=== PATIENT | female | born 1955 | race Caucasian/White ===

== ENCOUNTER 2020-07-29 10:06 | Outpatient (REF) | payer MEDICARE, MEDICAID, SELFPAY ==
--- NOTE | 2020-07-29 10:16 | XR_ITS ---
EXAMINATION: XR LUMBOSACRAL SPINE CLINICAL INFORMATION: Sacroiliitis COMPARISON: None TECHNIQUE: Three views of the lumbosacral spine. FINDINGS: There is no fracture or subluxation. Mild scoliotic curvature. There appears to be fusion at the L2-L3 vertebral bodies. Disc space narrowing of L1-L2 and L3-L4. Diffuse facet arthropathy. The sacroiliac joints are symmetric. There is no abnormal sclerosis. No fusion seen at the sacroiliac joints. The sacrum appears intact. The bowel gas pattern is unremarkable. XR/XR lumbar spine 2-3V IMPRESSION: Moderate degenerative changes of the lumbar spine. Symmetric appearance of the sacroiliac joints without fusion or abnormal sclerosis.
== END 2020-07-29 10:07 | disposition home or self-care (01) ==
LOC: HO.XRAY 10:06
PROVIDERS: PCP Internal Medicine; Visit Provider Student in an Organized Health Care Education/Training Program
DX: M46.1 Sacroiliitis, not elsewhere classified (principal)
CPT/HCPCS: 72100

== ENCOUNTER 2020-09-25 09:13 | Outpatient (REF) | payer MEDICARE, MEDICAID, SELFPAY ==
--- NOTE | 2020-09-25 09:19 | MM_ITS ---
EXAMINATION: MM SCREENING DIGITAL BREAST TOMOSYNTHESIS, BILATERAL CLINICAL INFORMATION: Screening. Asymptomatic. The lifetime risk of breast cancer based on the Tyrer-Cuzick Model is 4%. COMPARISON: Mammography: 09/20/2019 (new baseline) TECHNIQUE: Digital breast tomosynthesis is performed in both the craniocaudal and mediolateral oblique views along with computer-aided detection (CAD). Synthesized 2D images are generated from the tomosynthesis. FINDINGS: There are scattered areas of fibroglandular density (ACR BI-RADS breast composition Category b). The left breast is unremarkable. There is no interval mass or architectural abnormality. Neither breast shows abnormal calcifications. The bilateral axilla and skin contours are unremarkable. The right MLO view has asymmetric density near posterior nipple line 7 cm from nipple likely incompletely compressed glandular tissue or summation artifact. Patient will be recalled for additional imaging. MM/MM tomosynthesis screening BI IMPRESSION: 1. Right: Asymmetric density mid breast on MLO view, possibly summation artifact or incompletely compressed glandular tissue. 2. Left: No mammographic evidence of malignancy. ASSESSMENT: BI-RADS 0: Incomplete - Need Additional Imaging Evaluation RECOMMENDATION: 1. Additional views of the right breast (3-D spot MLO, 3-D ML). 2. Targeted ultrasound if warranted after review of the additional views. 3. Radiology department staff will contact the patient for additional imaging. This patient's information was entered into a reminder system with a target due date for their next mammogram.
== END 2020-09-25 09:14 | disposition home or self-care (01) ==
LOC: HO.MAMMO 09:13
PROVIDERS: PCP Internal Medicine; Visit Provider Internal Medicine
DX: Z12.31 Encounter for screening mammogram for malignant neoplasm of breast (principal)
CPT/HCPCS: 77063; 77067

== ENCOUNTER 2020-10-03 07:44 | Outpatient (REF) | payer MEDICARE, MEDICAID, SELFPAY ==
--- NOTE | 2020-10-03 07:47 | MM_ITS ---
EXAMINATION: MM DIAGNOSTIC DIGITAL BREAST TOMOSYNTHESIS, RIGHT CLINICAL INFORMATION: Recall from screening for asymmetric density right MLO view, likely incompletely compressed glandular tissue or summation artifact. COMPARISON: Mammography: 09/25/2020, 09/20/2019 TECHNIQUE: Digital breast tomosynthesis is performed. 2D images are generated from the tomosynthesis. The following views are obtained: ML, spot MLO x2. FINDINGS: There are scattered areas of fibroglandular density (ACR BI-RADS breast composition Category b). The additional views show no mass or architectural abnormality or developing density from prior studies. There are no significant changes from prior exams. Results are discussed with the patient at time of visit. MM/MM tomosynthesis added views R IMPRESSION: Additional views show no significant changes from prior exams. ASSESSMENT: BI-RADS 1: Negative RECOMMENDATION: Routine annual mammography screening. This patient's information was entered into a reminder system with a target due date for their next mammogram.
== END 2020-10-03 07:45 | disposition home or self-care (01) ==
LOC: HO.MAMMO 07:44
PROVIDERS: Visit Provider Internal Medicine
DX: N64.89 Other specified disorders of breast (principal)
CPT/HCPCS: 77061; 77065

== ENCOUNTER 2020-11-07 07:49 | Outpatient (REF) | payer MEDICARE, MEDICAID, SELFPAY ==
[2020-11-07 09:19] LABS: MANUAL DIFF FLAG NO
[2020-11-07 09:23] LABS: Basophils Percent Auto 0.7 % (0-2); Eosinophils Absolute Auto 0.1 X10*3/uL (0.0-0.4); Eosinophils Percent Auto 2.9 % (0-4); Hematocrit 37.3 % (37-47); Hemoglobin 12.3 g/dl (12.0-16.0); Imm Gran Abs Auto 0.01 X10*3/uL (0.00-0.03); Imm Gran Pct Auto 0.2 % (0.0-0.4); Lymphocytes Absolute Auto 1.5 X10*3/uL (1.2-4.9); Lymphocytes Percent Auto 35.5 % (20-40); Mean Corpuscular Hemoglobin 31.1 pg (27.0-33.0); Mean Corpuscular Volume 94.2 fL (80-98); Mean Platelet Volume 10.5 fL (9.4-12.3); Monocytes Absolute Auto 0.5 X10*3/uL (0.1-1.2); Monocytes Percent Auto 11.1 % (2-11); Neutrophils Absolute Auto 2.1 X10*3/uL (2.0-8.3); Neutrophils Percent Auto 49.6 % (45-73); Platelet Count 195 X10*3/uL (160-400); Red Blood Count 3.96 X10*6/uL (4.20-5.50); Red Cell Distribution Width 12.2 % (11.0-16.0); White Blood Count 4.1 X10*3/uL (4.8-10.8)
[2020-11-07 09:56] LABS: Alanine Aminotransferase 13 U/L (0-31); Alkaline Phosphatase 61 U/L (39-117); Anion Gap 12 (12-20); Aspartate Amino Transferase 13 U/L (5-31); Bilirubin Total 0.5 mg/dL (0.0-1.0); Blood Urea Nitrogen 20 mg/dL (9-16); Calcium 8.9 mg/dL (8.4-10.2); Carbon Dioxide 27 mmol/L (22-29); Chloride 105 mmol/L (96-108); Cholesterol 253 mg/dL; Estimated Glomerular Filt Rate 55; Glucose Random 91 mg/dL (60-115); HDL Cholesterol 79 mg/dL; LDL Cholesterol Calculated 161 mg/dl; Potassium 4.3 mmol/L (3.3-5.1); Sodium 140 mmol/L (135-145); Total Protein 6.3 g/dL (6.5-8.0); Triglycerides 68 mg/dL
[2020-11-07 10:12] LABS: Free T4 (Free Thyroxine) 1.13 ng/dL (0.71-1.85); Thyroid Stimulating Hormone 1.19 uIU/mL (0.32-4.0); Vitamin D 25-OH Total 22.1 ng/mL (>30)
[2020-11-07 10:16] LABS: Estimated Average Glucose 97 mg/dL; Hemoglobin A1C 101.1059 umol/L
[2020-11-07 10:50] LABS: Folate 7.4 ng/mL (> or = 4.0); Vitamin B12 534 pg/mL (200-900)
== END 2020-11-07 07:50 | disposition home or self-care (01) ==
LOC: HO.LAB 07:49
PROVIDERS: PCP Internal Medicine; Visit Provider Internal Medicine
DX: E78.00 Pure hypercholesterolemia, unspecified (principal); R73.02 Impaired glucose tolerance (oral)
CPT/HCPCS: 36415; 80053; 80061; 82306; 82607; 82746; 83036; 84439; 84443; 85025

== ENCOUNTER 2021-02-04 11:22 | Outpatient (REF) | payer MEDICARE, MEDICAID, SELFPAY ==
[2021-02-04 11:58] LABS: Glucose Urine UA NEG (NEG); Leukocyte Esterase Urine 1+ (NEG); Nitrite Urine NEG (NEG); PH 5.5 (5.0-8.0); Specific Gravity - Urine <= 1.005 (1.005-1.025); UACC Culture Trigger YES; Urine Blood TRACE (NEG); Urine Ketones NEG (NEG); Urine Protein NEG (NEG-TRACE)
[2021-02-04 11:59] LABS: Appearance Urine HAZY; Color Urine STRAW
[2021-02-04 12:12] LABS: RBC Urine 0-2 /HPF (0); Squamous Epithelial Cell Urine 1+ /LPF
[2021-02-04 12:13] LABS: Bacteria Urine TRACE /LPF
[2021-02-04 12:20] LABS: Alanine Aminotransferase 18 U/L (0-31); Albumin Level 4.1 g/dL (3.5-5.0); Alkaline Phosphatase 68 U/L (39-117); Anion Gap 12 (12-20); Aspartate Amino Transferase 19 U/L (5-31); Bilirubin Total 0.4 mg/dL (0.0-1.0); Blood Urea Nitrogen 25 mg/dL (9-16); Calcium 9.4 mg/dL (8.4-10.2); Carbon Dioxide 25 mmol/L (22-29); Chloride 104 mmol/L (96-108); Cholesterol 234 mg/dL; Estimated Glomerular Filt Rate 57; Glucose Random 93 mg/dL (60-115); HDL Cholesterol 102 mg/dL; LDL Cholesterol Calculated 119 mg/dl; Potassium 4.3 mmol/L (3.3-5.1); Sodium 137 mmol/L (135-145); Total Protein 6.5 g/dL (6.5-8.0); Triglycerides 68 mg/dL
== END 2021-02-04 11:23 | disposition home or self-care (01) ==
LOC: HO.LAB 11:22
PROVIDERS: PCP Internal Medicine; Visit Provider Internal Medicine
DX: E78.00 Pure hypercholesterolemia, unspecified (principal); R30.0 Dysuria
CPT/HCPCS: 36415; 80053; 80061; 81001; 81003; 87086; 87088; 87186

== ENCOUNTER 2021-04-29 11:13 | Outpatient (REF) | payer MEDICARE, MEDICAID, SELFPAY ==
[2021-04-29 15:15] LABS: Glucose Urine UA NEG (NEG); Leukocyte Esterase Urine 1+ (NEG); Nitrite Urine NEG (NEG); Specific Gravity - Urine <= 1.005 (1.005-1.025); UACC Culture Trigger YES; Urine Blood NEG (NEG); Urine Ketones NEG (NEG); Urine Protein NEG (NEG-TRACE)
[2021-04-29 15:17] LABS: Appearance Urine CLEAR; Color Urine STRAW
[2021-04-29 15:34] LABS: Bacteria Urine 3+ /LPF; RBC Urine 0 /HPF (0)
== END 2021-04-29 11:14 | disposition home or self-care (01) ==
LOC: HO.LAB 11:13
PROVIDERS: PCP Internal Medicine; Visit Provider Internal Medicine
DX: R30.0 Dysuria (principal)
CPT/HCPCS: 81001; 81003; 87086; 87088; 87186

== ENCOUNTER 2021-08-18 11:40 | Outpatient (REF) | payer MEDICARE, MEDICAID, SELFPAY ==
[2021-08-18 12:01] LABS: MANUAL DIFF FLAG NO
[2021-08-18 12:24] LABS: Basophils Percent Auto 0.6 % (0-2); Eosinophils Absolute Auto 0.1 X10*3/uL (0.0-0.4); Eosinophils Percent Auto 1.6 % (0-4); Hematocrit 33.7 % (37.0-47.0); Hemoglobin 10.5 g/dl (12.0-16.0); Imm Gran Abs Auto 0.03 X10*3/uL (0.00-0.03); Imm Gran Pct Auto 0.4 % (0.0-0.4); Lymphocytes Absolute Auto 1.6 X10*3/uL (1.2-4.9); Lymphocytes Percent Auto 23.4 % (20-40); Mean Corpuscular HGB Conc 31.2 g/dl (31.0-35.0); Mean Corpuscular Hemoglobin 30.2 pg (27.0-33.0); Mean Corpuscular Volume 96.8 fL (80.0-98.0); Mean Platelet Volume 9.2 fL (9.4-12.3); Monocytes Absolute Auto 0.6 X10*3/uL (0.1-1.2); Monocytes Percent Auto 7.9 % (2-11); Neutrophils Absolute Auto 4.6 x10*3/uL (2.0-8.3); Neutrophils Percent Auto 66.1 % (45-73); Platelet Count 410 X10*3/uL (160-400); Red Blood Count 3.48 X10*6/uL (4.20-5.50); Red Cell Distribution Width 13.2 % (11.0-16.0)
[2021-08-18 12:49] LABS: C Reactive Protein 0.79 mg/dL (< or = 0.50)
[2021-08-18 13:15] LABS: Erythrocyte Sedimentation Rate 32 MM/HR (0-20)
[2021-08-18 13:54] LABS: Appearance Urine CLEAR; Color Urine YELLOW; Glucose Urine UA NEG (NEG); Leukocyte Esterase Urine NEG (NEG); Nitrite Urine NEG (NEG); PH 5.5 (5.0-8.0); Specific Gravity - Urine >= 1.030 (1.005-1.025); Urine Blood NEG (NEG); Urine Ketones 5 MG/DL (NEG); Urine Protein NEG (NEG-TRACE)
== END 2021-08-18 11:41 | disposition home or self-care (01) ==
LOC: HO.LAB 11:40
PROVIDERS: Absent Provider Physician Assistant; PCP Internal Medicine; Visit Provider Neurological Surgery
DX: R30.0 Dysuria (principal); D64.9 Anemia, unspecified; R53.83 Other fatigue; L08.9 Local infection of the skin and subcutaneous tissue, unspecified
CPT/HCPCS: 36415; 81003; 85025; 85652; 86140

== ENCOUNTER 2021-10-14 10:55 | Outpatient (REF) | payer MEDICARE, MEDICAID, SELFPAY ==
--- NOTE | ~2021-10-14 | MM_ITS ---
EXAMINATION: MM SCREENING DIGITAL BREAST TOMOSYNTHESIS, BILATERAL CLINICAL INFORMATION: Screening. Asymptomatic. The lifetime risk of breast cancer based on the Tyrer-Cuzick Model is 4%. COMPARISON: Mammography: 10/03/2020, 09/25/2020, 09/20/2019 (new baseline) TECHNIQUE: Digital breast tomosynthesis is performed in both the craniocaudal and mediolateral oblique views along with computer-aided detection (CAD). Synthesized 2D images are generated from the tomosynthesis. FINDINGS: There are scattered areas of fibroglandular density (ACR BI-RADS breast composition Category b). There are no significant masses, abnormal calcifications, or other abnormalities. Parenchymal pattern is similar to prior studies. There is no developing density or architectural abnormality. The axilla and skin contours are unremarkable. No significant changes. MM/MM tomosynthesis screening BI IMPRESSION: No mammographic evidence of malignancy. ASSESSMENT: BI-RADS 1: Negative RECOMMENDATION: Routine annual mammography screening. This patient's information was entered into a reminder system with a target due date for their next mammogram.
--- NOTE | ~2021-10-14 | MM_ITS ---
EXAMINATION: BONE DENSITOMETRY CLINICAL INDICATION: Other specified disorders of bone density and structure, unspecified site. COMPARISON: None (current study represents initial baseline exam). TECHNIQUE: Using a Stitch DXA System (software version: 13.1) manufactured by [employer], dual-energy x-ray absorptiometry was performed of the lumbar spine and left hip. The images are of good technical quality. Summary results are attached. FINDINGS: AP SPINE L1-L4: BMD 1.370 g/cm2, Z-score 3.1, T-score 1.6, normal. LEFT FEMUR, NECK: BMD 0.768 g/cm2, Z-score -0.5, T-score -1.9, osteopenia. LEFT FEMUR, TOTAL: BMD 0.784 g/cm2, Z-score -0.6, T-score -1.8, osteopenia. IDENTIFIED RISK FACTORS: Early menopause, secondary osteoporosis, height loss. HISTORY OF FRACTURE: None listed. MEDICATIONS: Vitamin D. MM/XR DEXA axial skeleton IMPRESSION: 1. DIAGNOSIS: Osteopenia based on the lowest T-score value of -1.9 in the femoral neck applying World Health Organization criteria. 2. 10-YEAR FRACTURE RISK PREDICTION, FRAX: Major osteoporotic fracture (clinical spine, forearm, hip or shoulder) 10.3%. Hip fracture 1.5%. 3. Treatment Recommendations: NOF guidelines recommend consideration for treatment in postmenopausal women and men age 50 and older presenting with the following: -A hip or vertebral (clinical or morphometric) fracture. -T-score less than or equal to -2.5 at the femoral neck or spine after appropriate evaluation to exclude secondary causes. -Low bone mass at the hip or spine and a 10-year fracture probability by FRAX of greater than or equal to 3% for hip fracture or greater than or equal to 20% for major osteoporotic fracture based on the [place] adapted WHO algorithm. 4. Other Recommendations: All treatment decisions require clinical judgment and consideration of individual patient factors, including patient preferences, comorbidities, previous drug use, risk factors not captured in the FRAX model (e.g. frailty, falls, vitamin D deficiency, increased bone turnover, interval significant decline in bone density) and possible under or overestimation of fracture risk by FRAX. Additional medical evaluation for secondary cause of low bone mineral density may be appropriate. FUTURE SCAN RECOMMENDATION: People with diagnosed cases of osteoporosis or at high risk for fracture should have regular bone mineral density tests. For patients eligible for Medicare, routine testing is allowed once every 2 years. The testing frequency can be increased to one year for patients who have rapidly progressing disease, those who are receiving or discontinuing medical therapy to restore bone mass, or have additional risk factors.
== END 2021-10-14 10:56 | disposition home or self-care (01) ==
LOC: HO.MAMMO 10:55
PROVIDERS: PCP Internal Medicine; Visit Provider Internal Medicine
DX: Z12.31 Encounter for screening mammogram for malignant neoplasm of breast (principal); Z13.820 Encounter for screening for osteoporosis; M85.80 Other specified disorders of bone density and structure, unspecified site; Z78.0 Asymptomatic menopausal state
CPT/HCPCS: 77063; 77067; 77080

== ENCOUNTER 2022-06-02 07:03 | Outpatient (REF) | payer MEDICARE, MEDICAID, SELFPAY ==
[2022-06-02 11:09] LABS: MANUAL DIFF FLAG NO
[2022-06-02 11:25] LABS: Basophils Percent Auto 0.7 % (0-2); Eosinophils Absolute Auto 0.1 X10*3/uL (0.0-0.4); Hematocrit 38.3 % (37.0-47.0); Hemoglobin 12.3 g/dl (12.0-16.0); Imm Gran Abs Auto 0.01 X10*3/uL (0.00-0.03); Imm Gran Pct Auto 0.2 % (0.0-0.4); Immature Retic Fraction 3.9 % (3.0-15.9); Lymphocytes Absolute Auto 1.9 X10*3/uL (1.2-4.9); Lymphocytes Percent Auto 42.6 % (20-40); Mean Corpuscular HGB Conc 32.1 g/dl (31.0-35.0); Mean Corpuscular Hemoglobin 29.7 pg (27.0-33.0); Mean Corpuscular Volume 92.5 fL (80.0-98.0); Mean Platelet Volume 10.8 fL (9.4-12.3); Monocytes Absolute Auto 0.4 X10*3/uL (0.1-1.2); Monocytes Percent Auto 9.3 % (2-11); Neutrophils Absolute Auto 1.9 x10*3/uL (2.0-8.3); Neutrophils Percent Auto 44.2 % (45-73); Platelet Count 186 X10*3/uL (160-400); Red Blood Count 4.14 X10*6/uL (4.20-5.50); Red Cell Distribution Width 13.1 % (11.0-16.0); Retic HGB Equivalent 34.3 pg (30.0-35.0); Reticulocyte Percent 1.4 % (0.5-1.8); Reticulocytes Absolute 0.056 X10*6/uL (0.026-0.095); White Blood Count 4.4 X10*3/uL (4.8-10.8)
[2022-06-02 11:31] LABS: Estimated Average Glucose 103 mg/dL; Hemoglobin A1c % 5.2 %
[2022-06-02 11:52] LABS: Alanine Aminotransferase 14 U/L (0-31); Albumin Level 4.2 g/dL (3.5-5.0); Alkaline Phosphatase 79 U/L (39-117); Anion Gap 14 (12-20); Aspartate Amino Transferase 19 U/L (5-31); Bilirubin Total 0.5 mg/dL (0.0-1.0); Blood Urea Nitrogen 30 mg/dL (9-16); Carbon Dioxide 25 mmol/L (22-29); Chloride 106 mmol/L (96-108); Cholesterol 308 mg/dL; Estimated Glomerular Filt Rate 47; Glucose Random 98 mg/dL (60-115); HDL Cholesterol 75 mg/dL; Iron 104 mcg/dL (30-160); LDL Cholesterol Calculated 216 mg/dl; Percent Iron Saturation 35 % (15-50); Potassium 4.1 mmol/L (3.3-5.1); Sodium 141 mmol/L (135-145); Total Iron Binding Capacity 295 mcg/dL (228-428); Total Protein 6.8 g/dL (6.5-8.0); Triglycerides 87 mg/dL; Unsaturated Iron Binding 191 ug/dL
[2022-06-02 11:59] LABS: Ferritin 209 ng/mL (10-250); Free T4 (Free Thyroxine) 0.95 ng/dL (0.71-1.85); Thyroid Stimulating Hormone 1.67 uIU/mL (0.32-4.0); Vitamin D 25-OH Total 28.4 ng/mL (>30)
[2022-06-02 12:06] LABS: Folate 7.6 ng/mL (> or = 4.0); Vitamin B12 534 pg/mL (200-900)
[2022-06-04 21:41] LABS: Lyme Abs Screen <0.90 index
[2022-06-05 14:47] LABS: A. Phagocytphilium DNA,RT-PCR NOT DETECTED (NOT DETECTED); Babesia Microti DNA, RT-PCR NOT DETECTED (NOT DETECTED); Borrelia Miyamotoi,DNA RT-PCR NOT DETECTED (NOT DETECTED); E.Chaffeensis DNA RT-PCR NOT DETECTED (NOT DETECTED); Lyme(Borrelia ssp)DNA RT-PCR NOT DETECTED (NOT DETECTED)
== END 2022-06-02 07:04 | disposition home or self-care (01) ==
LOC: HO.HMGCLDS 07:03
PROVIDERS: Absent Provider Physician Assistant; PCP Internal Medicine; Visit Provider Internal Medicine
DX: E78.00 Pure hypercholesterolemia, unspecified (principal); R73.02 Impaired glucose tolerance (oral); R21 Rash and other nonspecific skin eruption; M81.0 Age-related osteoporosis without current pathological fracture; D64.9 Anemia, unspecified
CPT/HCPCS: 36415; 80053; 80061; 82306; 82607; 82728; 82746; 83036; 83540; 84439; 84443; 85025; 85045; 86617; 86618; 87798; 87801

== ENCOUNTER 2022-06-24 12:03 | Emergency (ER) | payer MEDICARE, MEDICAID, SELFPAY ==
--- NOTE | ~2022-06-24 | US_ITS ---
EXAMINATION: US VENOUS ULTRASOUND WITH DOPPLER LOWER EXTREMITY, LEFT CLINICAL INFORMATION: Calf cramping, pain COMPARISON: None TECHNIQUE: Ultrasound of the deep veins is performed from the hip to the calf with compression sonography and color and pulse Doppler assessment. Spectral analysis with color-flow imaging is performed. FINDINGS: There is normal venous compression and respiratory variation and augmented flow. The visualized common femoral vein, superficial femoral vein, profunda femoral vein, popliteal vein, and the trifurcation region shows no evidence of deep venous thrombosis. There is no significant popliteal fossa cyst. If the patient's symptoms persist, followup ultrasound in 5 days 7 days might be of value to exclude proximal propagation from a non-visualized calf vein. US/US venous duplex LE LT IMPRESSION: No DVT demonstrated in the left lower extremity.
--- NOTE | ~2022-06-24 | XR_ITS ---
EXAMINATION: XR CHEST CLINICAL INFORMATION: Dyspnea COMPARISON: Previous chest x-ray most recent August 2016 TECHNIQUE: Frontal view of the chest was obtained. FINDINGS: No significant abnormality is noted involving the heart, lungs, mediastinum, bony thorax or soft tissues. XR/XR chest 1V IMPRESSION: Unremarkable examination.
[2022-06-24 12:06] VITALS: PULSE 98; RESP 18; TEMP 37.2; O2SAT 99; BMI 22.4
--- NOTE | 2022-06-24 12:10 | ECG_ITS ---
Test Reason : DYSPNEA Blood Pressure : / mmHG Vent. Rate : 076 BPM Atrial Rate : 076 BPM P-R Int : 126 ms QRS Dur : 078 ms QT Int : 404 ms P-R-T Axes : 073 045 063 degrees QTc Int : 454 ms Normal sinus rhythm Intra-ventricular conduction delay Otherwise normal ECG When compared with ECG of 27-SEP-2019 12:41, No significant changes seen Referred By: Generic ED Physician Electronically Signed By:GLENN MATHEWS MD
[2022-06-24 12:30] LABS: Basophils Percent Auto 0.4 % (0-2); Eosinophils Absolute Auto 0.1 X10*3/uL (0.0-0.4); Eosinophils Percent Auto 2.2 % (0-4); Hematocrit 35.9 % (37.0-47.0); Lymphocytes Absolute Auto 1.4 X10*3/uL (1.2-4.9); Lymphocytes Percent Auto 30.3 % (20-40); MANUAL DIFF FLAG NO; Mean Corpuscular HGB Conc 33.4 g/dl (31.0-35.0); Mean Corpuscular Hemoglobin 30.2 pg (27.0-33.0); Mean Corpuscular Volume 90.4 fL (80.0-98.0); Mean Platelet Volume 9.6 fL (9.4-12.3); Monocytes Absolute Auto 0.3 X10*3/uL (0.1-1.2); Monocytes Percent Auto 6.5 % (2-11); Neutrophils Absolute Auto 2.8 x10*3/uL (2.0-8.3); Neutrophils Percent Auto 60.6 % (45-73); Platelet Count 203 X10*3/uL (160-400); Red Blood Count 3.97 X10*6/uL (4.20-5.50); Red Cell Distribution Width 13.2 % (11.0-16.0); White Blood Count 4.6 X10*3/uL (4.8-10.8)
[2022-06-24 12:47] LABS: Alanine Aminotransferase 16 U/L (0-31); Albumin Level 4.2 g/dL (3.5-5.0); Alkaline Phosphatase 76 U/L (39-117); Anion Gap 16 (12-20); Aspartate Amino Transferase 19 U/L (5-31); Bilirubin Total 0.4 mg/dL (0.0-1.0); Blood Urea Nitrogen 20 mg/dL (9-16); Calcium 8.9 mg/dL (8.4-10.2); Carbon Dioxide 22 mmol/L (22-29); Chloride 105 mmol/L (96-108); Creatinine Clr Calc Pharmacy 55.3; Estimated Glomerular Filt Rate 59; Glucose Random 116 mg/dL (60-115); Sodium 139 mmol/L (135-145); Total Protein 6.7 g/dL (6.5-8.0)
[2022-06-24 12:50] LABS: COVID-19 Test Negative (Negative); IDNOW Serial# 55D5AD1C
[2022-06-24 15:05] VITALS: BP 149/60; PULSE 65; RESP 16; TEMP 36.6; O2SAT 98; BMI 22.4
--- NOTE | 2022-06-24 16:25 | ED.GENADULT ---
HPI - General Adult General Chief complaint: Dyspnea Stated complaint: SOB Time Seen by Provider: 06/24/22 16:24 Source: patient Mode of arrival: ambulatory Limitations: no limitations History of Present Illness HPI narrative: 67 year old female history of anxiety, depression, DDD, impaired glucose tolerance presents to the ED with complaints of shortness of breath at rest and dyspnea on exertion X 3 weeks. Patient reports this is not normal for her at all, she is usually active wo difficulties. Reports she recently got a puppy 3 weeks ago and she feels like she cant even walk the dog due to DOSHI. Vague complaints of few days of left calf cramping. Denies hormone replacement therapy, long travel, hx of pe/dvt. Not on blood thinners. Denies [place] pain, nausea, vomiting, abd pain, headache, dizziness, weakness, fevers, chills. Related Data Home Medications Medication Instructions Recorded Confirmed sertraline 100 mg tablet 200 mg PO DAILY 08/19/21 09/22/21 Previous Rx's Medication Instructions Recorded triamcinolone acetonide 0.5 % 1 appl topical BID #60 grams 11/16/20 topical cream fluticasone propionate 50 2 spray intranasal DAILY #48 grams 12/16/20 mcg/actuation nasal spray,suspension metronidazole 1 % topical gel 1 appl topical BEDTIME #60 grams 12/22/20 (Metrogel) lamotrigine 150 mg tablet 150 mg PO DAILY #90 tabs 01/05/21 clonazepam 1 mg tablet 1 mg PO QID PRN anxiety 30 days 01/12/21 #120 tabs cane #1 ea 08/19/21 sennosides 8.6 mg-docusate sodium 2 tab-cap PO BEDTIME 30 days #60 09/22/21 50 mg tablet (Senna-S) tabs fexofenadine 180 mg tablet 180 mg PO DAILY 90 days #90 tabs 11/10/21 (Corrine Allergy) bupropion HCl 200 mg tablet,12 hr 200 mg PO DAILY #90 tabs 01/04/22 sustained-release doxycycline hyclate 100 mg capsule 100 mg PO BID 10 days #20 caps 06/01/22 hydrocortisone 1 % lotion 1 appl topical TID PRN skin 06/01/22 (Anti-Itch (hydrocortisone)) irritation #120 mL prednisone 20 mg tablet 20 mg PO DAILY 5 days #5 tabs 06/01/22 Allergies Allergy/AdvReac Type Severity Reaction Status Date / Time prednisone [PREDNISONE] Allergy Unknown HIVES Verified 06/01/22 15:34 trazodone AdvReac Intermediate nightmares Verified 06/01/22 15:34 Review of Systems Review of Systems: Constitutional : No Weight loss, No Fever, No Chills, No Fatigue, No Malaise ENT/Mouth : No sore throat, No Rhinorrhea Eyes: No Eye Pain, No Swelling, No Redness Cardiovascular : No Chest Pain, + SOB, + Dyspnea on Exertion, No Orthopnea, No Edema, No Palpitations Respiratory : No Cough, No Sputum, No Wheezing Gastrointestinal : No Nausea, No Vomiting, No Diarrhea, No Constipation, No abdominal Pain, No Hematochezia, No Melena Genitourinary : No Dysuria, No Urinary Frequency, No Hematuria, Musculoskeletal : No joint pain, No Myalgias, No Joint Swelling Skin : No Skin Lesions, No rash Neuro : No Weakness, No Numbness, No Dizziness, No Headache Psych : No Anxiety/Panic, No Depression All other systems reviewed and are negative Yes all other systems are reviewed and are negative [facility] Past Medical History Attestation statement: The following information was validated with the patient. Source: old records reviewed and nursing notes reviewed Medical History DDD (degenerative disc disease), lumbar Impaired glucose tolerance Surgical History History of back surgery Family History Family History Father No problems noted. Mother Melanoma Brother Bladder cancer Sister Major depression Daughter Major depression Social History Social History Housing: House Alcohol intake: current Patient Tobacco Use Status: Former Tobacco user Tobacco use type: Cigarette Years Smoked: quit 2014 e-Cigarette/Vaping Use: Never Used Second Hand Smoke Exposure: No Advance Directives: No Advance Directives Information Provided: No Current occupational status: disabled Physical Exam ED Vital Signs: Vital Signs - 24 hr 06/24/22 12:06 06/24/22 15:05 06/24/22 16:41 Temperature 98.9 F 97.9 F Pulse Rate 98 65 70 Respiratory Rate 18 16 18 Blood Pressure 149/60 H 169/82 H Pulse Oximetry 99 98 97 Oxygen Delivery Method Room Air Room Air Room Air BMI result Body Mass Index 22.4 vss Appearance: Alert.? Oriented X3.? No acute distress.? Head: Normocephalic, atraumatic, no step-offs or deformities Eyes: Pupils equal, round and reactive to light.? ENT: Pharynx normal.?? Neck: Normal inspection.? Neck supple.? CVS: Normal heart rate and rhythm.? Pulses normal.? Respiratory: No respiratory distress.? Breath sounds normal.? Abdomen: Soft and nontender.? Skin: Skin warm and dry.? Normal skin color.? Normal skin turgor.? Extremities: No lower extremity edema.? No calf ttp. 5/5 strength to bilateral upper and lower extremities Back: No midline tenderness, no C-spine tenderness, full range of motion, no CVA tenderness bilaterally Neuro: Oriented X 3.? No motor deficit.? No sensory deficit. CN 2-12 intact Course Reevaluation(s) Reevaluation #1: CBC appears to be around patients baseline. Chemistry wo electrolyte abnormalities requiring intervention. COVID negative. CXR no acute findings. Initial EKG with large amount of aritifact hard to determine underlying rythem will reapeat at this time. Pending repeat EKG, BNP, ambulatory O2, urine, dimer, dvt study Time: 16:32 Reevaluation #2: Repeat EKG showing normal sinus rhythm no ST elevations or inversions concerning for ischemia. D-dimer negative. Pending BNP, ambulatory O2, urine, DVT study. Time: 18:12 Reevaluation #3: No DVT on US. Pending BNP, ambulatory O2 and urine. Time: 18:36 Additional Reevaluation(s): Patient refusing further evaluation and tx, states she has been waiting long enough to nursing. Patient requesting to leave at this time will leave AMA Medical Decision Making MDM Narrative Medical decision making narrative: [id number] 67 yo female presents with sob & dyspnea on exertion X 3 weeks PE - benign Plan- labs, imaging, urine, dimer. PERC- 1 for age. Medical Records Medical records reviewed: Yes I reviewed the patient's medical records. Lab Data Lab results reviewed: Yes I reviewed the patient's lab results. Result diagrams: 06/24/22 12:24 06/24/22 12:24 Labs: Lab Results 06/24/22 06/24/22 06/24/22 Range/Units 12:24 12:24 12:24 WBC 4.6 L (4.8-10.8) X10*3/uL RBC 3.97 L (4.20-5.50) X10*6/uL Hgb 12.0 (12.0-16.0) g/dl Hct 35.9 L (37.0-47.0) % MCV 90.4 (80.0-98.0) fL MCH 30.2 (27.0-33.0) pg MCHC 33.4 (31.0-35.0) g/dl RDW 13.2 (11.0-16.0) % Plt Count 203 (160-400) X10*3/uL MPV 9.6 (9.4-12.3) fL Immature Gran % (Auto) 0.0 (0.0-0.4) % Neut % (Auto) 60.6 (45-73) % Lymph % (Auto) 30.3 (20-40) % [place] % (Auto) 6.5 (2-11) % Eos % (Auto) 2.2 (0-4) % Baso % (Auto) 0.4 (0-2) % Lymph # (Auto) 1.4 (1.2-4.9) X10*3/uL [place] # (Auto) 0.3 (0.1-1.2) X10*3/uL Eos # (Auto) 0.1 (0.0-0.4) X10*3/uL Baso # (Auto) 0.0 (0.0-0.2) X10*3/uL Abs Immat Gran (auto) 0.00 (0.00-0.03) X10*3/uL Absolute Neuts (auto) 2.8 (2.0-8.3) x10*3/uL Absolute Nucleated RBC 0.000 (0.0-0.012) X10*3/uL Nucleated RBC % (auto) 0.0 (0.0-0.2) /100WBC D-Dimer High Sensitivty NG/ML Sodium 139 (135-145) mmol/L Potassium 4.0 (3.3-5.1) mmol/L Chloride 105 (96-108) mmol/L Carbon Dioxide 22 (22-29) mmol/L Anion Gap 16 (12-20) BUN 20 H (9-16) mg/dL Creatinine 0.95 (0.5-1.4) mg/dL Estim Creat Clear Calc 55.3 Estimated GFR 59 Random Glucose 116 H (60-115) mg/dL Calcium 8.9 (8.4-10.2) mg/dL Total Bilirubin 0.4 (0.0-1.0) mg/dL AST 19 (5-31) U/L ALT 16 (0-31) U/L Alkaline Phosphatase 76 (39-117) U/L Total Protein 6.7 (6.5-8.0) g/dL Albumin 4.2 (3.5-5.0) g/dL COVID-19 (JESÚS) Negative (Negative) COVID-19 Clin Com See Note 06/24/22 Range/Units 17:19 WBC (4.8-10.8) X10*3/uL RBC (4.20-5.50) X10*6/uL Hgb (12.0-16.0) g/dl Hct (37.0-47.0) % MCV (80.0-98.0) fL MCH (27.0-33.0) pg MCHC (31.0-35.0) g/dl RDW (11.0-16.0) % Plt Count (160-400) X10*3/uL MPV (9.4-12.3) fL Immature Gran % (Auto) (0.0-0.4) % Neut % (Auto) (45-73) % Lymph % (Auto) (20-40) % [place] % (Auto) (2-11) % Eos % (Auto) (0-4) % Baso % (Auto) (0-2) % Lymph # (Auto) (1.2-4.9) X10*3/uL [place] # (Auto) (0.1-1.2) X10*3/uL Eos # (Auto) (0.0-0.4) X10*3/uL Baso # (Auto) (0.0-0.2) X10*3/uL Abs Immat Gran (auto) (0.00-0.03) X10*3/uL Absolute Neuts (auto) (2.0-8.3) x10*3/uL Absolute Nucleated RBC (0.0-0.012) X10*3/uL Nucleated RBC % (auto) (0.0-0.2) /100WBC D-Dimer High Sensitivty < 150 NG/ML Sodium (135-145) mmol/L Potassium (3.3-5.1) mmol/L Chloride (96-108) mmol/L Carbon Dioxide (22-29) mmol/L Anion Gap (12-20) BUN (9-16) mg/dL Creatinine (0.5-1.4) mg/dL Estim Creat Clear Calc Estimated GFR Random Glucose (60-115) mg/dL Calcium (8.4-10.2) mg/dL Total Bilirubin (0.0-1.0) mg/dL AST (5-31) U/L ALT (0-31) U/L Alkaline Phosphatase (39-117) U/L Total Protein (6.5-8.0) g/dL Albumin (3.5-5.0) g/dL COVID-19 (JESÚS) (Negative) COVID-19 Clin Com ECG Data Attestation: I personally reviewed and interpreted this ECG as follows: Prior ECG tracings: available for review Interpretation: Vent 65 pr normal qrs normal, qt/qtc normal, no st elevations or inversions. No signs of acute ischemia. No changes from 09/27/2019 Critical Care Time Critical Care Time Critical Care Time: No Discharge Plan Discharge Clinical Impression: Shortness of breath, Left against medical advice Patient Disposition: Home, Self-Care Instructions: Shortness of Breath (ED) Additional Instructions: Take your medications as prescribed. If you were prescribed antibiotics today, it is important that you take your medication to their entirety, do not skip any doses, do not finish them early. Follow-up with your primary care provider this week. Return to the emergency department with new or worsening symptoms. In case of emergency call 911 US/US venous duplex LE LT IMPRESSION: No DVT demonstrated in the left lower extremity. XR/XR chest 1V IMPRESSION: Unremarkable examination. ? Prescriptions: No Action triamcinolone acetonide 0.5 % cream 1 appl topical BID Qty: 60 0RF fluticasone propionate 50 mcg/actuation spray,suspension 2 spray intranasal DAILY Qty: 48 11RF lamotrigine 150 mg tablet 150 mg PO DAILY Qty: 90 2RF clonazepam 1 mg tablet 1 mg PO QID PRN (Reason: anxiety) 30 Days Qty: 120 2RF fexofenadine [Corrine Allergy] 180 mg tablet 180 mg PO DAILY 90 Days Qty: 90 1RF bupropion HCl 200 mg tablet sustained-release 12 hr 200 mg PO DAILY Qty: 90 2RF metronidazole [Metrogel] 1 % gel 1 appl topical BEDTIME Qty: 60 0RF sertraline 100 mg tablet 200 mg PO DAILY sennosides-docusate sodium [Senna-S] 8.6-50 mg tablet 2 tab-cap PO BEDTIME 30 Days Qty: 60 3RF prednisone 20 mg tablet 20 mg PO DAILY 5 Days Qty: 5 0RF hydrocortisone [Anti-Itch (HC)] 1 % lotion 1 appl topical TID PRN (Reason: skin irritation) Qty: 120 0RF doxycycline hyclate 100 mg capsule 100 mg PO BID 10 Days Qty: 20 0RF (DME) cane Device See Rx Instructions .Route Qty: 1 0RF Rx Instructions: As directed Referrals: Jose Diaz MD [Primary Care Provider] - 2 days Stand Alone Forms: Against Medical Advice
--- NOTE | 2022-06-24 16:32 | ECG_ITS ---
Test Reason : SOB Blood Pressure : / mmHG Vent. Rate : 065 BPM Atrial Rate : 065 BPM P-R Int : 120 ms QRS Dur : 086 ms QT Int : 430 ms P-R-T Axes : 035 055 067 degrees QTc Int : 447 ms Normal sinus rhythm Normal ECG When compared with ECG of 24-JUN-2022 12:17, No significant changes seen Referred By: Les Roach Electronically Signed By:GLENN MATHEWS MD
[2022-06-24 16:41] VITALS: BP 169/82; PULSE 70; RESP 18; O2SAT 97
--- OUTSIDE RECORDS SUMMARY | 2022-06-24 17:06 | XMS_ITS | Continuity of Care Document ---
:1955 Author Organization [facility] Address [address] [place] [address]- Care Team Providers Name Role Phone Po Jose ROCK Primary Care Physician Encounter [facility] Date(s): 10/08/19 - 10/18/19 [place] [address]- [facility] Attending Physician: Admtr, [id number] Admitting Physician: Admtr, Ar8 Referring Physician: Admtr, Ar8 Allergies, Adverse Reactions, Alerts Substance Reaction Severity Status predniSONE Hives Active traZODone Active
--- OUTSIDE RECORDS SUMMARY | 2022-06-24 17:06 | XMS_ITS | Continuity of Care Document ---
:1955 Author Organization [facility] Address [address] [place] [address]- Care Team Providers Name Role Phone Po Jose ROCK Primary Care Physician Encounter [facility] Date(s): 03/09/21 - 03/16/21 [facility] [address] [place] [address]- Encounter Diagnosis Keratosis (Discharge Diagnosis) - 03/09/21 Attending Physician: Raymond Aguilar MD Allergies, Adverse Reactions, Alerts Substance Reaction Severity Status predniSONE Hives Active traZODone Active Problem List Diagnosis Diagnosis Type Effective Dates Health Status Clinical Serv ice Informant Keratosis Discharge 03/09/21 Diagnosis Vital Signs Most recent to oldest [Reference Range]: 1 Height 165 cm (03/09/21 11:55 AM) Oxygen Saturation [94-100 %] 100 % (03/09/21 11:55 AM) Pulse Rate [55-90 bpm] 71 bpm (03/09/21 11:55 AM) Blood Pressure [90-138/55-84 mm Hg] 162/77 mm Hg *H* (03/09/21 11:55 AM) Respiratory Rate [16-30 br/min] 18 br/min (03/09/21 11:55 AM) Temperature [96.8-100.4 DegF] 98.7 DegF (03/09/21 11:55 AM) Mode of Delivery (Oxygen) Room air (03/09/21 11:55 AM) Blood pressure sites Arm, right (03/09/21 11:55 AM) Temperature Route Temporal (03/09/21 11:55 AM)
--- OUTSIDE RECORDS SUMMARY | 2022-06-24 17:06 | XMS_ITS | Continuity of Care Document ---
:1955 Author Organization [facility] Address [address] [place] [address]- Care Team Providers Name Role Phone Jose Diaz MD Primary Care Physician Encounter [facility] Date(s): 09/14/20 - 09/21/20 [facility] [address] [place] [address]- Encounter Diagnosis Facial swelling (Discharge Diagnosis) - 09/14/20 Hypertension (Discharge Diagnosis) - 09/14/20 Attending Physician: Raymond Aguilar MD Referring Physician: Jose Diaz MD Allergies, Adverse Reactions, Alerts Substance Reaction Severity Status predniSONE Hives Active traZODone Active Problem List Diagnosis Diagnosis Type Effective Dates Health Status Clinical In formant Service Facial swelling Discharge 09/14/20 Diagnosis Hypertension Discharge 09/14/20 Diagnosis Vital Signs Most recent to oldest [Reference Range]: 1 Height 165 cm (09/14/20 10:04 AM) Oxygen Saturation [94-100 %] 96 % (09/14/20 10:04 AM) Pulse Rate [55-90 bpm] 70 bpm (09/14/20 10:04 AM) Blood Pressure [90-138/55-84 mm Hg] 173/103 mm Hg *H* (09/14/20 10:04 AM) Respiratory Rate [16-30 br/min] 20 br/min (09/14/20 10:04 AM) Temperature [96.8-100.4 DegF] 97.5 DegF (09/14/20 10:04 AM) Mode of Delivery (Oxygen) Room air (09/14/20 10:04 AM) Blood pressure sites Arm, left (09/14/20 10:04 AM)
--- OUTSIDE RECORDS SUMMARY | 2022-06-24 17:06 | XMS_ITS | Continuity of Care Document ---
:1955 Author Organization [facility] Address [address] [place] [address]- Care Team Providers Name Role Phone Po Jose ROCK Primary Care Physician Encounter [facility] Date(s): 01/21/21 - 02/20/[address] [address] Attending Physician: Dawna Ruvalcaba Admitting Physician: Admtr, Ar8 Referring Physician: Admtr, Ar8 Allergies, Adverse Reactions, Alerts Substance Reaction Severity Status predniSONE Hives Active traZODone Active
--- OUTSIDE RECORDS SUMMARY | 2022-06-24 17:06 | XMS_ITS | Continuity of Care Document ---
:1955 Author Organization [facility] Address [address] [place] [address]- Care Team Providers Name Role Phone Jose Diaz MD Primary Care Physician Encounter [facility] [place] Date(s): 11/22/20 - 11/29/20 [facility] [address] [place] [address]- Encounter Diagnosis Screen for STD (sexually transmitted disease) (Discharge Diagnosis) - 11/22/20 Attending Physician: Raymond Aguilar MD Referring Physician: Jose Diaz MD Allergies, Adverse Reactions, Alerts Substance Reaction Severity Status predniSONE Hives Active traZODone Active Problem List Diagnosis Diagnosis Type Effective Dates Health Clinical Infor mant Status Service Screen for STD Discharge 11/22/20 (sexually Diagnosis transmitted disease) Vital Signs Most recent to oldest [Reference Range]: 1 Height 165 cm (11/22/20 2:31 PM) Oxygen Saturation [94-100 %] 100 % (11/22/20 2:31 PM) Pulse Rate [55-90 bpm] 58 bpm (11/22/20 2:31 PM) Blood Pressure [90-138/55-84 mm Hg] 157/81 mm Hg *H* (11/22/20 2:31 PM) Respiratory Rate [16-30 br/min] 18 br/min (11/22/20 2:31 PM) Temperature [96.8-100.4 DegF] 97.1 DegF (11/22/20 2:31 PM) Mode of Delivery (Oxygen) Room air (11/22/20 2:31 PM) Blood pressure sites Arm, right (11/22/20 2:31 PM) Temperature Route Temporal (11/22/20 2:31 PM)
--- OUTSIDE RECORDS SUMMARY | 2022-06-24 17:06 | XMS_ITS | Continuity of Care Document ---
:1955 Author Organization [facility] Address [address] [place] [address]- Care Team Providers Name Role Phone Po Jose ROCK Primary Care Physician Encounter [facility] Date(s): 11/30/21 - 12/30/[address] [address] Attending Physician: Dawna Ruvalcaba Admitting Physician: Admtr, Ar8 Referring Physician: Admtr, Ar8 Allergies, Adverse Reactions, Alerts Substance Reaction Severity Status predniSONE Hives Active traZODone Active
--- OUTSIDE RECORDS SUMMARY | 2022-06-24 17:06 | XMS_ITS | Continuity of Care Document ---
:1955 Author Organization [facility] pt Address [address] [place] [address]- Care Team Providers Name Role Phone Po Jose ROCK Primary Care Physician Encounter [facility] [place] Date(s): 09/11/21 - 10/11/21 [facility] [address] [place], [place] [address] Attending Physician: Admtr, Ar8 Admitting Physician: Admtr, Ar8 Referring Physician: Admtr, Ar8 Allergies, Adverse Reactions, Alerts Substance Reaction Severity Status predniSONE Hives Active traZODone Active
--- OUTSIDE RECORDS SUMMARY | 2022-06-24 17:06 | XMS_ITS | Continuity of Care Document ---
:1955 Author Organization [facility] Address [address] [place] [address]- Care Team Providers Name Role Phone Po Jose ROCK Primary Care Physician Encounter [facility] [place] Date(s): 09/14/20 - 10/14/20 [facility] [address] [place], [place] [address] Attending Physician: Admtr, Ar8 Admitting Physician: Admtr, Ar8 Referring Physician: Admtr, Ar8 Allergies, Adverse Reactions, Alerts Substance Reaction Severity Status predniSONE Hives Active traZODone Active
--- OUTSIDE RECORDS SUMMARY | 2022-06-24 17:06 | XMS_ITS | Continuity of Care Document ---
:1955 Author Organization [facility] pt Address [address] [place] [address]- Care Team Providers Name Role Phone Jose Diaz MD Primary Care Physician Encounter [facility] [place] Date(s): 09/11/21 - 09/18/21 [facility] [address] [place], [place] [address] Encounter Diagnosis Persistent dry cough (Discharge Diagnosis) - 09/11/21 Attending Physician: Not on Staff, Attending MD Referring Physician: Jose Diaz MD Allergies, Adverse Reactions, Alerts Substance Reaction Severity Status predniSONE Hives Active traZODone Active Medications benzonatate 100 mg oral capsule 2 capsule = 200 mg, By Mouth, 3 times a day, for 5 days, # 30 capsule, 1 Refills, Acute 09/21/21 13:50:00 EST, 09/11/21 13:50:00 EST, Capsule, [id number], Partial fill upon patient request if the prescription is for a schedule II opio... Start Date: 09/11/21 Stop Date: 09/21/21 Status: Ordered Problem List Diagnosis Diagnosis Type Effective Dates Health Clinical Infor mant Status Service Persistent dry Discharge 09/11/21 cough Diagnosis
--- OUTSIDE RECORDS SUMMARY | 2022-06-24 17:06 | XMS_ITS | Continuity of Care Document ---
:1955 Author Organization [facility] Address [address] [place] [address]- Care Team Providers Name Role Phone Po Jose ROCK Primary Care Physician [place] [facility] [place] 09/06/20 - 09/13/20 [facility] [address] [place] [address]- Attending Physician: Raymond Aguilar MD Allergies, Adverse Reactions, Alerts Substance Reaction Severity Status predniSONE Hives Active traZODone Active Vital Signs Most recent to oldest [Reference Range]: 1 Height 165 cm (09/06/20 12:51 PM) Oxygen Saturation [94-100 %] 100 % (09/06/20 12:51 PM) Pulse Rate [55-90 bpm] 90 bpm (09/06/20 12:51 PM) Blood Pressure [90-138/55-84 mm Hg] 166/86 mm Hg *H* (09/06/20 12:51 PM) Respiratory Rate [16-30 br/min] 20 br/min (09/06/20 12:51 PM) Temperature [96.8-100.4 DegF] 97.8 DegF (09/06/20 12:51 PM) Mode of Delivery (Oxygen) Room air (09/06/20 12:51 PM) Blood pressure sites Arm, left (09/06/20 12:51 PM)
--- OUTSIDE RECORDS SUMMARY | 2022-06-24 17:06 | XMS_ITS | Continuity of Care Document ---
:1955 Author Organization [facility] Address [address] [place] [address]- Care Team Providers Name Role Phone Po Jose ROCK Primary Care Physician Encounter [facility] Date(s): 03/09/21 - 04/08/21 [facility] [address] [place] [address]- Attending Physician: AdmDawna ontiveros Admitting Physician: Admtr, Ar8 Referring Physician: Admtr, Ar8 Allergies, Adverse Reactions, Alerts Substance Reaction Severity Status predniSONE Hives Active traZODone Active
--- OUTSIDE RECORDS SUMMARY | 2022-06-24 17:06 | XMS_ITS | Continuity of Care Document ---
:1955 Author Organization [facility] Address [address] [place] [address]- Care Team Providers Name Role Phone Jose Diaz MD Primary Care Physician Encounter [facility] Date(s): 10/17/21 - 11/22/[address] [address] Attending Physician: Jose Diaz MD Admitting Physician: Jose Diaz MD Referring Physician: Jose Diaz MD Allergies, Adverse Reactions, Alerts Substance Reaction Severity Status predniSONE Hives Active traZODone Active
--- OUTSIDE RECORDS SUMMARY | 2022-06-24 17:06 | XMS_ITS | Continuity of Care Document ---
:1955 Author Organization [facility] Address [address] [place] [address]- Care Team Providers Name Role Phone Jose Diaz MD Primary Care Physician Encounter [facility] Date(s): 04/15/22 - 05/15/[address] [address] Attending Physician: Admtr, Ar8 Admitting Physician: Admtr, Ar8 Referring Physician: Admtr, Ar8 Allergies, Adverse Reactions, Alerts Substance Reaction Severity Status predniSONE Hives Active traZODone Active Care Team PersonnelName: Jose Diaz MD Address: [address] [place], [place] [address]
[2022-06-24 17:35] LABS: D Dimer High Sensitivity < 150 NG/ML
== END 2022-06-24 19:30 | disposition home or self-care (01) ==
PROVIDERS: Physician Assistant; Emergency Provider Emergency Medicine; PCP Internal Medicine
DX: R06.02 Shortness of breath (principal); M79.662 Pain in left lower leg; Z79.899 Other long term (current) drug therapy; Z20.822 Contact with and (suspected) exposure to COVID-19
CPT/HCPCS: 36415; 71045; 80053; 85025; 85379; 87635; 93005; 93971; 99283; 99284

== ENCOUNTER 2022-07-02 01:01 | Emergency (ER) | payer MEDICARE, MEDICAID, SELFPAY ==
--- NOTE | ~2022-07-02 | XR_ITS ---
EXAMINATION: XR HUMERUS, RIGHT CLINICAL INFORMATION: Status post fall COMPARISON: None TECHNIQUE: AP and lateral views of the right humerus. XR/XR humerus RT FINDINGS/IMPRESSION: Acute comminuted fractures of the greater tuberosity which appears mildly impacted without significant displacement.. No dislocation. Glenoid intact. AC joint congruent with small marginal osteophytes. Soft tissues unremarkable.
--- NOTE | ~2022-07-02 | CT_ITS ---
EXAMINATION: CT HEAD WITHOUT CONTRAST CLINICAL INFORMATION: Fall. Right orbital injury. COMPARISON: None TECHNIQUE: Contiguous axial imaging was performed from the skull base to vertex without intravenous administration of contrast. This CT examination was performed using dose optimization techniques as appropriate, variously including the following: *Automated exposure control *Adjustment of mA and/or kV according to patient size (this includes techniques or standardized protocols for targeted exams where dose is matched to indication/reason for exam; i.e. extremities or head) *Use of iterative reconstruction technique DLP: 663 mGy-cm FINDINGS: There is no evidence of acute intracranial hemorrhage or territorial infarction. No abnormal mass effect or midline shift is seen. Gonzalez to white matter differentiation is well preserved. No extra-axial fluid collections are identified. No hydrocephalus. No significant volume loss. There is no abnormal attenuation within the brain parenchyma. Right periorbital soft tissue swelling. No fractures. The mastoid air cells and visualized portions of the paranasal sinuses are well aerated. CT/CT head/brain wo IV con IMPRESSION: No acute intracranial pathology.
[2022-07-02 01:37] VITALS: BP 157/85; PULSE 74; RESP 18; TEMP 36.6; O2SAT 96; BMI 22.2
--- NOTE | 2022-07-02 01:56 | ED.FALL ---
HPI - Fall General Chief Complaint: Fall Stated Complaint: fall Time Seen by Provider: 07/02/22 01:33 Source: patient Mode of arrival: ambulatory Limitations: no limitations History of Present Illness HPI Narrative: Patient got tripped by her dog just prior to arrival landed on her right side of the face and right shoulder small ecchymosis right orbital area unable to abduct her right shoulder because of significant pain in the upper part no hip injuries patient able to ambulate Related Data Home Medications Medication Instructions Recorded Confirmed sertraline 100 mg tablet 200 mg PO DAILY 08/19/21 09/22/21 Previous Rx's Medication Instructions Recorded fluticasone propionate 50 2 spray intranasal DAILY #48 grams 12/16/20 mcg/actuation nasal spray,suspension lamotrigine 150 mg tablet 150 mg PO DAILY #90 tabs 01/05/21 cane #1 ea 08/19/21 fexofenadine 180 mg tablet 180 mg PO DAILY 90 days #90 tabs 11/10/21 (Corrine Allergy) bupropion HCl 200 mg tablet,12 hr 200 mg PO DAILY #90 tabs 01/04/22 sustained-release hydrocortisone 1 % lotion 1 appl topical TID PRN skin 06/01/22 (Anti-Itch (hydrocortisone)) irritation #120 mL clonazepam 1 mg tablet 0.5 mg PO DAILY PRN anxiety 30 06/28/22 days #30 tabs triamcinolone acetonide 0.5 % 1 appl topical BID #60 grams 06/28/22 topical cream oxycodone-acetaminophen 5 mg-325 1 tab PO Q6H PRN pain #30 tabs 07/02/22 mg tablet (Percocet) Allergies Allergy/AdvReac Type Severity Reaction Status Date / Time prednisone [PREDNISONE] Allergy Unknown HIVES Verified 06/28/22 14:52 trazodone AdvReac Intermediate nightmares Verified 06/28/22 14:52 Review of Systems Review of Systems: Yes all other systems are reviewed and are negative PMFSH Past Medical History Medical History Breast asymmetry Colonoscopy refused DDD (degenerative disc disease), lumbar Impaired glucose tolerance Surgical History History of back surgery Family History Family History Father No problems noted. Mother Melanoma Brother Bladder cancer Sister Major depression Daughter Major depression Social History Social History Housing: House Alcohol intake: current Patient Tobacco Use Status: Former Tobacco user Tobacco use type: Cigarette Years Smoked: quit 2014 e-Cigarette/Vaping Use: Never Used Second Hand Smoke Exposure: No Advance Directives: No Advance Directives Information Provided: No Current occupational status: disabled Physical Exam Vital Signs: Vital Signs: Last Vital Signs Temp 98 F 07/02/22 01:37 Pulse 74 07/02/22 01:37 Resp 18 07/02/22 01:37 BP 157/85 H 07/02/22 01:37 Pulse Ox 96 07/02/22 01:37 O2 Del Method 07/02/22 01:37 BMI result Body Mass Index 22.2 Appearance: Alert. Oriented X3. In moderate distress. Eyes: PERRLA, No Nystagmus HEENT: Pharynx normal. Oral Mucosa moist small ecchymosis right periorbital area EOMI VF normal Neck: Normal inspection. Neck supple. CVS: Normal heart rate and rhythm. Pulses normal. Respiratory: No respiratory distress. Equal air entry bilateral, Bowel sounds are present, no mass palpable, R CVA tenderness + Skin: Skin warm and dry. Normal skin color. Normal skin turgor. Extremities: No lower extremity edema. No calf tenderness Neuro: Oriented X 3. No motor deficit. Extrem: Shoulder/upper arm images: 1. Tender right shoulder limited abduction because of pain neurovascular intact MDM - Fall MDM Narrative Medical decision making narrative: Patient status post mechanical fall head CT negative right shoulder showed right humerus greater tuberosity fracture XR/XR humerus RT FINDINGS/IMPRESSION: Acute comminuted fractures of the greater tuberosity which appears mildly impacted without significant displacement.. No dislocation. Glenoid intact. AC joint congruent with small marginal osteophytes. Soft tissues unremarkable.? ?Shoulder sling was applied advised to follow with Ortho Discharge Plan Discharge Clinical Impression: Fracture, humerus, great tuberosity Patient Disposition: Home, Self-Care Instructions: Arm Fracture in Adults (ED) Additional Instructions: Keep the right arm in sling until seen by Orthopedics Pain medication as advised Follow-up with orthopedic Prescriptions: New oxycodone-acetaminophen [Percocet] 5-325 mg tablet 1 tab PO Q6H PRN (Reason: pain) Qty: 30 0RF Rx Instructions: Partial Fill upon patient request. No Action fluticasone propionate 50 mcg/actuation spray,suspension 2 spray intranasal DAILY Qty: 48 11RF lamotrigine 150 mg tablet 150 mg PO DAILY Qty: 90 2RF fexofenadine [Corrine Allergy] 180 mg tablet 180 mg PO DAILY 90 Days Qty: 90 1RF bupropion HCl 200 mg tablet sustained-release 12 hr 200 mg PO DAILY Qty: 90 2RF triamcinolone acetonide 0.5 % cream 1 appl topical BID Qty: 60 0RF sertraline 100 mg tablet 200 mg PO DAILY hydrocortisone [Anti-Itch (HC)] 1 % lotion 1 appl topical TID PRN (Reason: skin irritation) Qty: 120 0RF clonazepam 1 mg tablet 0.5 mg PO DAILY PRN (Reason: anxiety) 30 Days Qty: 30 2RF (DME) cane Device See Rx Instructions .Route Qty: 1 0RF Rx Instructions: As directed Referrals: Jj Neil MD [Physician] - 1 week
[2022-07-02] MEDS: Morphine Sulfate 4 MG/ML CARTRIDGE IM (02:16)
[2022-07-02] MEDS: oxyCODONE HCl Immed Release 5 MG TABLET 10 MG PO (02:54)
[2022-07-02 03:34] VITALS: RESP 20
--- NOTE | 2022-07-02 03:35 | PC.NURSE ---
pt a&o, no sob or chest . Positive CMS , reviewed discharge instructions with pt. Pt verbalized understanding.
== END 2022-07-02 03:38 | disposition home or self-care (01) ==
PROVIDERS: Emergency Provider Internal Medicine; PCP Internal Medicine
DX: S00.11XA Contusion of right eyelid and periocular area, initial encounter (principal); S42.251A Displaced fracture of greater tuberosity of right humerus, initial encounter for closed fracture; W01.0XXA Fall on same level from slipping, tripping and stumbling without subsequent striking against object, initial encounter; Y93.89 Activity, other specified; Y92.019 Unspecified place in single-family (private) house as the place of occurrence of the external cause; Y99.9 Unspecified external cause status
CPT/HCPCS: 70450; 73060; 96372; 99284; J2270

== ENCOUNTER 2022-07-05 12:15 | Outpatient (REF) | payer MEDICARE, MEDICAID, SELFPAY ==
--- NOTE | ~2022-07-05 | XR_ITS ---
EXAMINATION: XR SHOULDER, RIGHT CLINICAL INFORMATION: Pain. COMPARISON: Radiograph of the right humerus 07/02/2022. TECHNIQUE: Two views of the right shoulder. FINDINGS: Again noted comminuted fracture of the greater tuberosity of the right humerus with perhaps mild increase fracture gap when compared to 07/02/2022, although this could be related with changes in patient's positioning and differences in technique. No subluxation. 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 No significant soft tissue abnormality. XR/XR shoulder RT min 2V IMPRESSION: Comminuted fracture of the greater tuberosity of the right humerus with perhaps mild increase fracture gap when compared to 07/02/2022, although this could be related with changes in patient's positioning and differences in technique.
== END 2022-07-05 12:16 | disposition home or self-care (01) ==
LOC: HO.HOSX 12:15
PROVIDERS: Visit Provider Physician Assistant
DX: S42.251A Displaced fracture of greater tuberosity of right humerus, initial encounter for closed fracture (principal)
CPT/HCPCS: 73030; 99202

== ENCOUNTER 2022-07-26 07:32 | Outpatient (REF) | payer MEDICARE, MEDICAID, SELFPAY ==
--- NOTE | ~2022-07-26 | XR_ITS ---
EXAMINATION: XR SHOULDER, RIGHT CLINICAL INFORMATION: Pain right shoulder. COMPARISON: Right shoulder 07/05/2022. TECHNIQUE: AP external rotation, Grashey, scapular Y, and axillary views of the right shoulder. FINDINGS: There is a healing fracture of the right greater tuberosity of the humerus with callus formation. There is no dislocation. There is loss of the right AC joint with inferior and superior spurring. The soft tissues are normal. XR/XR shoulder RT min 2V IMPRESSION: 1. Healing, comminuted fracture of the right greater tuberosity of the humerus with callus formation. 2. Degenerative arthritic changes of the right AC joint with inferior and superior spurring.
== END 2022-07-26 07:33 | disposition home or self-care (01) ==
LOC: HO.HOSX 07:32
PROVIDERS: Visit Provider Physician Assistant
DX: M25.511 Pain in right shoulder (principal)
CPT/HCPCS: 73030; 99212

== ENCOUNTER → 2022-07-26 08:52 | Outpatient (BNVA) | payer MEDICARE, MEDICAID, SELFPAY | PROVIDERS: PCP Internal Medicine; Visit Provider Physician Assistant | DX: S42.253D Displaced fracture of greater tuberosity of unspecified humerus, subsequent encounter for fracture with routine healing (principal) | CPT/HCPCS: 99212 ==

== ENCOUNTER 2022-09-16 17:10 | Outpatient (REF) | payer MEDICARE, MEDICAID, SELFPAY ==
--- NOTE | ~2022-09-16 | XR_ITS ---
EXAMINATION: XR SHOULDER, RIGHT CLINICAL INFORMATION: Pain in right shoulder COMPARISON: 07/26/2022 TECHNIQUE: AP external rotation, Grashey, scapular Y, and axillary views of the right shoulder. FINDINGS: Healing fracture of the greater tuberosity of the humeral head again seen. No dislocation. Severe acromioclavicular joint osteoarthritis. Visualized right lung and ribs are normal. XR/XR shoulder RT min 2V IMPRESSION: Fracture of the greater tuberosity of the humeral head.
== END 2022-09-16 17:11 | disposition home or self-care (01) ==
LOC: HO.HOSX 17:10
PROVIDERS: Visit Provider Physician Assistant
DX: S42.251D Displaced fracture of greater tuberosity of right humerus, subsequent encounter for fracture with routine healing (principal); X58.XXXD Exposure to other specified factors, subsequent encounter
CPT/HCPCS: 73030

== ENCOUNTER 2022-09-23 11:29 | Emergency (ER) | payer MEDICARE, MEDICAID, SELFPAY ==
--- NOTE | ~2022-09-23 | CT_ITS ---
EXAMINATION: CT BRAIN AND CT CERVICAL SPINE WITHOUT CONTRAST. CLINICAL INFORMATION: Fall hit head. COMPARISON: None TECHNIQUE: 5 mm thin axial and reformatted 2 mm thin sagittal coronal images of brain were obtained. Subsequently axial 3 mm thin and reformatted 3 mm thin sagittal and coronal images of cervical spine were obtained. DLP 850. This CT examination was performed using dose optimization technique as appropriate, variously including the following: Automated exposure control Adjustment of MA and/or KV according to patient size(this includes techniques or standardized protocols for targeted exams where dose is matched to indication/reason for exam; extremities or head. Use of iterative reconstruction techniques. FINDINGS: Brain: There is no acute intra-axial, extra-axial bleed, masses or midline shift. There is no acute infarction evolution. There is no edema. The lateral ventricles are symmetrical in size but mildly enlarged. The finn to white matter differentiation is maintained. Bone windows reveal no calvarial abnormality. There is no scalp soft tissue abnormality. There is a punctate calcification right posterior optic globe. Bilateral paranasal sinuses and mastoid air cells are well-aerated. Cervical spine: There is mild straightening of cervical lordosis. The vertebral heights and alignment is normal. There is loss of C5-C6 and C6-C7 disc heights with moderate ventral and mild posterior cervical spondylosis. Rest of the disc levels are normal. The craniovertebral junction and the C1-C2 alignment is normal. There is moderate right C3-C4, C4-C5 and left C7-T1 facet joint arthropathy is noted. There is no visible acute fracture, dislocation or subluxation seen. The prevertebral and paravertebral soft tissues are normal. The central trachea and the bronchi widely patent. Lung apices are clear. CT/CT cervical spine wo IV con IMPRESSION: No acute intracranial process seen. Mild straightening of cervical lordosis with degenerative disc changes C5-C6 and C6-C7 disc levels. No acute fracture, dislocation or subluxation.
[2022-09-23 11:37] VITALS: BP 175/94; PULSE 89; RESP 18; TEMP 36.8; O2SAT 99; BMI 22.9
--- NOTE | 2022-09-23 11:37 | ED_ITS ---
HPI - Wound/Laceration General Chief Complaint: Fall <Yu Saba NP - Last Filed: 09/23/22 11:40> Stated Complaint: fall back of head inj <Yu Saba NP - Last Filed: 09/23/22 11:40> Time Seen by Provider: 09/23/22 11:56 <Yu Saba NP - Last Filed: 09/23/22 11:40> Source: patient and family <Monica Spring NP - Last Filed: 09/23/22 15:25> Mode of arrival: ambulatory <Monica Spring NP - Last Filed: 09/23/22 15:25> Limitations: no limitations <Monica Spring NP - Last Filed: 09/23/22 15:25> History of Present Illness HPI narrative: 67-year-old female past medical history of anxiety presents emergency department today after tripping over her dog, sustaining a mechanical fall, hitting the back of her head, with a laceration on the back of the left skull. She reports immediate pain in the back of her head with bleeding which is now controlled. She was home alone at the time and called her for assistance. She denies any headache, lightheadedness, dizziness, chest pain, shortness of breath prior to the fall. She denies any confusion, headache, vision changes, chest pain, shortness of breath, nausea, vomiting at this time. She reports her last tetanus shot was roughly 1 year ago to primary care office and is not on anticoagulation therapy. <JOHAN Sawyer Last Filed: 09/23/22 15:25> Onset (ago): hour(s) (2) <Monica Spring NP - Last Filed: 09/23/22 15:25> Place: home <Monica Spring NP - Last Filed: 09/23/22 15:25> Patient tetanus UTD: Yes <Monica Spring NP - Last Filed: 09/23/22 15:25> Context: fall <JOHAN Sawyer Last Filed: 09/23/22 15:25> Associated symptoms: pain <Monica Spring NP - Last Filed: 09/23/22 15:25> Related Data Home Medications: Home Medications Medication Instructions Recorded Confirmed sertraline 100 mg tablet 200 mg PO DAILY 08/19/21 09/22/21 hydroxyzine HCl 25 mg tablet 25 mg PO BID 07/05/22 Previous Rx's Medication Instructions Recorded fluticasone propionate 50 2 spray intranasal DAILY #48 grams 12/16/20 mcg/actuation nasal spray,suspension lamotrigine 150 mg tablet 150 mg PO DAILY #90 tabs 01/05/21 cane #1 ea 08/19/21 fexofenadine 180 mg tablet 180 mg PO DAILY 90 days #90 tabs 11/10/21 (Corrine Allergy) bupropion HCl 200 mg tablet,12 hr 200 mg PO DAILY #90 tabs 01/04/22 sustained-release hydrocortisone 1 % lotion 1 appl topical TID PRN skin 06/01/22 (Anti-Itch (hydrocortisone)) irritation #120 mL clonazepam 1 mg tablet 0.5 mg PO DAILY PRN anxiety 30 06/28/22 days #30 tabs triamcinolone acetonide 0.5 % 1 appl topical BID #60 grams 06/28/22 topical cream oxycodone-acetaminophen 5 mg-325 1 tab PO Q6H PRN pain #30 tabs 07/02/22 mg tablet (Percocet) acetaminophen 325 mg tablet 650 mg PO Q4-6H PRN fever or pain 07/05/22 30 days #240 tabs naproxen 500 mg tablet 500 mg PO BID 30 days #60 tabs 07/05/22 oxycodone 5 mg tablet 5 mg PO Q6H PRN pain 7 days #42 07/05/22 tabs ondansetron 4 mg disintegrating 4 mg PO Q8H PRN nausea and 09/23/22 tablet vomiting #10 tabs oxycodone 5 mg capsule 5 mg PO TID PRN pain #7 caps 09/23/22 <Yu Saba NP - Last Filed: 09/23/22 11:40> Allergies/Adverse Reactions: Allergies Allergy/AdvReac Type Severity Reaction Status Date / Time prednisone [PREDNISONE] Allergy Unknown HIVES Verified 09/16/22 09:37 <Yu Saba NP - Last Filed: 09/23/22 11:40> Review of Systems Review of Systems: In addition to documented HPI above, the additional ROS was obtained: Constitutional: No Weight loss, No Fever, No Chills ENT/Mouth: No Ear Pain, No Nasal Congestion, No Sinus Pain, No Hoarseness, No sore throat, No Rhinorrhea, No Swallowing Difficulty Cardiovascular: No Chest Pain, No SOB Respiratory: No Cough, No Sputum, No Wheezing Gastrointestinal: No Nausea, No Vomiting, No Diarrhea, No Constipation, No Abdominal pain Genitourinary: No Dysuria, No Urinary Frequency, No Hematuria, No Urinary Incontinence/retention, No Urgency, No Flank Pain Musculoskeletal: No joint pain, No Myalgias, No Joint Swelling Skin: No Skin Lesions, No rash Neuro: No Weakness, No Numbness, No Paresthesias <Monica Spring NP - Last Filed: 09/23/22 15:25> Yes all other systems are reviewed and are negative <Monica Spring NP - Last Filed: 09/23/22 15:25> [facility] Past Medical History Attestation statement: The following information was validated with the patient. <Monica Spring NP - Last Filed: 09/23/22 15:25> Source: old records reviewed <Monica Spring NP - Last Filed: 09/23/22 15:25> Medical History: Medical History Breast asymmetry Colonoscopy refused DDD (degenerative disc disease), lumbar Impaired glucose tolerance <Yu Saba NP - Last Filed: 09/23/22 11:40> Surgical History: Surgical History History of back surgery <Yu Saba NP - Last Filed: 09/23/22 11:40> Family History Family History: Family History Father No problems noted. Mother Melanoma Brother Bladder cancer Sister Major depression Daughter Major depression <Yu Saba NP - Last Filed: 09/23/22 11:40> Social History Social History: Social History Housing: House Alcohol intake: current Patient Tobacco Use Status: Former Tobacco user Tobacco use type: Cigarette Years Smoked: quit 2014 e-Cigarette/Vaping Use: Never Used Second Hand Smoke Exposure: No Advance Directives: No Current occupational status: disabled Current occupation: left hand dominant <Yu Saba NP - Last Filed: 09/23/22 11:40> Physical Exam Vital Signs: Vital Signs: Last Vital Signs Temp 98.3 F 09/23/22 11:37 Pulse 90 09/23/22 13:17 Resp 16 09/23/22 13:17 BP 164/94 H 09/23/22 13:17 Pulse Ox 100 09/23/22 13:17 O2 Del Method 09/23/22 13:17 BMI result Body Mass Index 22.9 <Yu Saba NP - Last Filed: 09/23/22 11:40> Vital Signs: Last Vital Signs Temp 98.3 F 09/23/22 11:37 Pulse 90 09/23/22 13:17 Resp 16 09/23/22 13:17 BP 164/94 H 09/23/22 13:17 Pulse Ox 100 09/23/22 13:17 O2 Del Method 09/23/22 13:17 BMI result Body Mass Index 22.9 <Monica Spring NP - Last Filed: 09/23/22 15:25> Vital Signs: Last Vital Signs Temp 98.3 F 09/23/22 11:37 Pulse 90 09/23/22 13:17 Resp 16 09/23/22 13:17 BP 164/94 H 09/23/22 13:17 Pulse Ox 100 09/23/22 13:17 O2 Del Method 09/23/22 13:17 BMI result Body Mass Index 22.9 <JOHN Stone - Last Filed: 09/23/22 13:20> Nursing notes and vital signs reviewed. GENERAL APPEARANCE: A&0 x 4, generally well appearing, no acute distress HENMT: Normal to inspection, atraumatic, face symmetrical. Normal external ears, nose, and oropharynx clear. EYE: PERRLA, EOM intact, structures appear normal NECK: Supple without lymphadenopathy. No stiffness or restricted ROM. CHEST: Normal to inspection HEART: Normal rate and regular rhythm, normal S1/S2, no M/R/G LUNGS: LS CTA, moving air well. Able to speak in complete sentences. No crackles, wheezes, or rhonchi auscultated ABDOMEN: Soft, nontender, nondistended. Normal bowel sounds noted BACK: No CVAT, no obvious deformity EXTREMITIES: Moving all extremities without difficulty. No cyanosis, clubbing, or edema. Normal capillary refill. NEUROLOGICAL: Alert and oriented, moving all 4 extremities with equal strength. CN not formally tested but appearing grossly intact. Observed to ambulate with normal gait. Cognition normal SKIN: Warm and dry without any lesions, rash, or visible sores. Linear laceration present on left posterior scalp PSYCH: Cooperative, normal affect, normal thought process <Monica Spring NP - Last Filed: 09/23/22 15:25> Course Course Course Narrative: This is a rapid medical exam. Deferred additional HPI, ROS, PE to primary provider. 67 yo female here with head strike after a trip and fall over her puppy with laceration to the posterior head. No LOC. NO AC therapy use. Will check CT head/cervical spine. tetanus IS UTD. VSS. <Monica Spring NP - Last Filed: 09/23/22 15:25> Medications Administered Discontinued Medications Generic Name Dose Route Start Last Admin Trade Name Freq PRN Reason Stop Dose Admin Ondansetron HCl 4 mg 09/23/22 13:06 09/23/22 13:27 Ondansetron Odt 4 Mg Tab.Gisela TRANSLINGU 09/23/22 13:07 4 mg ONCE ONE Administration Oxycodone HCl 5 mg 09/23/22 13:20 09/23/22 13:27 Oxycodone Hcl Immed Release 5 Mg Tablet PO 09/23/22 13:21 5 mg ONCE ONE Administration <Yu Saba NP - Last Filed: 09/23/22 11:40> Medications Administered Discontinued Medications Generic Name Dose Route Start Last Admin Trade Name Freq PRN Reason Stop Dose Admin Ondansetron HCl 4 mg 09/23/22 13:06 09/23/22 13:27 Ondansetron Odt 4 Mg Tab.Rapdis TRANSLINGU 09/23/22 13:07 4 mg ONCE ONE Administration Oxycodone HCl 5 mg 09/23/22 13:20 09/23/22 13:27 Oxycodone Hcl Immed Release 5 Mg Tablet PO 09/23/22 13:21 5 mg ONCE ONE Administration <Monica Spring NP - Last Filed: 09/23/22 15:25> Medications Administered Discontinued Medications Generic Name Dose Route Start Last Admin Trade Name Saskia PRN Reason Stop Dose Admin Ondansetron HCl 4 mg 09/23/22 13:06 09/23/22 13:27 Ondansetron Odt 4 Mg Tab.Rapdis TRANSLINGU 09/23/22 13:07 4 mg ONCE ONE Administration Oxycodone HCl 5 mg 09/23/22 13:20 09/23/22 13:27 Oxycodone Hcl Immed Release 5 Mg Tablet PO 09/23/22 13:21 5 mg ONCE ONE Administration <JOHN Stone - Last Filed: 09/23/22 13:20> Medical Decision Making Medical Decision Making MDM Narrative: This is a rapid medical exam. Deferred additional HPI, ROS, PE to primary provider. 67 yo female here with head strike after a trip and fall over her puppy with laceration to the posterior head. No LOC. NO AC therapy use. Will check CT head/cervical spine. tetanus IS UTD. VSS. <Yu Saba NP - Last Filed: 09/23/22 11:40> 67-year-old female past medical history of anxiety presents emergency department today after tripping over her dog, sustaining a mechanical fall, hitting the back of her head, with a laceration on the back of the left skull. She reports immediate pain in the back of her head with bleeding which is now controlled. She was home alone at the time and called her for assistance. She denies any headache, lightheadedness, dizziness, chest pain, shortness of breath prior to the fall. 2 cm linear laceration present on left posterior scalp with hematoma at surrounding tissue. Laceration closed with katie. After completing stapling, patient complaining of nausea and increased discomfort. Zofran and oxycodone given for complaints of pain with good results in symptom reduction. CT head/cervical spine showing no acute intra cranial process, fracture, dislocation, or subluxation of cervical spine. Patient is safe for discharge at this time with plan to manage discomfort with [id number] Tylenol and/or Motrin with dosing as for packaging. Zofran and oxycodone prescribed for relief of nausea and pain related to fall. HPI, PE, diagnostics, and plan discussed with patient and family with no unanswered questions at this time. Patient educated to return to the emergency department with new, worsening, or concerning emergent symptoms. Recommended to follow-up with her primary care provider for further treatment and management. *Refer to Course for additional information on consultations, diagnostic interpretation, consultations, emergency department stay, conversations with patient and family, shared decision making with patient, and more information on medical decision making* <Monica Spring NP - Last Filed: 09/23/22 15:25> Independent Interpretation I performed an independent interpretation of an: CT Scan (Head, cervical spine) <Monica Spring NP - Last Filed: 09/23/22 15:25> Radiology Impression Radiologist Impression: EXAMINATION: CT BRAIN AND CT CERVICAL SPINE WITHOUT CONTRAST. CLINICAL INFORMATION: Fall hit head.? COMPARISON: None? TECHNIQUE: 5 mm thin axial and reformatted 2 mm thin sagittal coronal images of brain were obtained. Subsequently axial 3 mm thin and reformatted 3 mm thin sagittal and coronal images of cervical spine were obtained. DLP 850. This CT examination was performed using dose optimization technique as appropriate, variously including the following: Automated exposure control Adjustment of MA and/or KV according to patient size(this includes techniques or standardized protocols for targeted exams where dose is matched to indication/reason for exam;? extremities or head. Use of iterative reconstruction techniques.? FINDINGS: Brain: There is no acute intra-axial, extra-axial bleed, masses or midline shift. There is no acute infarction evolution. There is no edema. The lateral ventricles are symmetrical in size but mildly enlarged. The finn to white matter differentiation is maintained. Bone windows reveal no calvarial abnormality. There is no scalp soft tissue abnormality. There is a punctate calcification right posterior optic globe. Bilateral paranasal sinuses and mastoid air cells are well-aerated. Cervical spine: There is mild straightening of cervical lordosis. The vertebral heights and alignment is normal. There is loss of C5-C6 and C6-C7 disc heights with moderate ventral and mild posterior cervical spondylosis. Rest of the disc levels are normal. The craniovertebral junction and the C1-C2 alignment is normal. There is moderate right C3-C4, C4-C5 and left C7-T1 facet joint arthropathy is noted. There is no visible acute fracture, dislocation or subluxation seen. The prevertebral and paravertebral soft tissues are normal. The central trachea and the bronchi widely patent. Lung apices are clear. CT/CT head/brain wo IV con IMPRESSION: No acute intracranial process seen. ? Mild straightening of cervical lordosis with degenerative disc changes C5-C6 and C6-C7 disc levels. No acute fracture, dislocation or subluxation. ? Dictated By: Mich Nagy MD Signed By: <Electronically signed by Mich Nagy MD in OV> 09/23/22 1300 DD/ 1210 TD/TT:? [employer] [facility] [place]Monica Spring NP - Last Filed: 09/23/22 15:25> Procedures Laceration Laceration 1: Site: scalp <JOHN Stone - Last Filed: 09/23/22 13:20> Size (cm): 2 <JOHN Stone - Last Filed: 09/23/22 13:20> Description: linear <JOHN Stone - Last Filed: 09/23/22 13:20> Depth: simple, single layer <JOHN Stone - Last Filed: 09/23/22 13:20> Pre-repair: wound explored, irrigated extensively and deep structures intact <JOHN Stone Last Filed: 09/23/22 13:20> Size (cm): other (5 katie placed no complications patient tolerated procedure well) <JOHN Stone - Last Filed: 09/23/22 13:20> Discharge Plan Discharge Clinical Impression: Fall, Laceration of scalp <Yu Saba NP - Last Filed: 09/23/22 11:40> Patient Disposition: Still a Patient <Yu Saba NP - Last Filed: 09/23/22 11:40> Instructions: Fall Prevention (ED) <JOHAN Moore Last Filed: 09/23/22 11:40> Additional Instructions: Return in 5 days for your katie to be removed. <Yu Saba NP - Last Filed: 09/23/22 11:40> Prescriptions: New ondansetron 4 mg tablet,disintegrating 4 mg PO Q8H PRN (Reason: nausea and vomiting) Qty: 10 0RF oxycodone 5 mg capsule 5 mg PO TID PRN (Reason: pain) Qty: 7 0RF Rx Instructions: Partial Fill upon patient request. No Action fluticasone propionate 50 mcg/actuation spray,suspension 2 spray intranasal DAILY Qty: 48 11RF lamotrigine 150 mg tablet 150 mg PO DAILY Qty: 90 2RF fexofenadine [Corrine Allergy] 180 mg tablet 180 mg PO DAILY 90 Days Qty: 90 1RF bupropion HCl 200 mg tablet sustained-release 12 hr 200 mg PO DAILY Qty: 90 2RF triamcinolone acetonide 0.5 % cream 1 appl topical BID Qty: 60 0RF oxycodone-acetaminophen [Percocet] 5-325 mg tablet 1 tab PO Q6H PRN (Reason: pain) Qty: 30 0RF Rx Instructions: Partial Fill upon patient request. sertraline 100 mg tablet 200 mg PO DAILY hydrocortisone [Anti-Itch (HC)] 1 % lotion 1 appl topical TID PRN (Reason: skin irritation) Qty: 120 0RF clonazepam 1 mg tablet 0.5 mg PO DAILY PRN (Reason: anxiety) 30 Days Qty: 30 2RF (DME) cane Device See Rx Instructions .Route Qty: 1 0RF Rx Instructions: As directed hydroxyzine HCl 25 mg tablet 25 mg PO BID oxycodone 5 mg tablet 5 mg PO Q6H PRN (Reason: pain) 7 Days Qty: 42 0RF Rx Instructions: Partial Fill upon patient request. naproxen 500 mg tablet 500 mg PO BID 30 Days Qty: 60 3RF acetaminophen 325 mg tablet 650 mg PO Q4-6H PRN (Reason: fever or pain) 30 Days Qty: 240 0RF <Yu Saba NP - Last Filed: 09/23/22 11:40> Referrals: Po,Jose Deluna MD [Primary Care Provider] - <Yu Saba NP - Last Filed: 09/23/22 11:40> Interventions: ED Discharge Assessment Last Done: 09/23/22 14:29 <Yu Saba NP - Last Filed: 09/23/22 11:40> Discharge Date/Time: 09/23/22 14:30 <Yu Saba NP - Last Filed: 09/23/22 11:40> Print Language: Irish <Yu Saba NP - Last Filed: 09/23/22 11:40>
[2022-09-23 13:17] VITALS: BP 164/94; PULSE 90; RESP 16; O2SAT 100
[2022-09-23] MEDS: oxyCODONE HCl Immed Release 5 MG TABLET PO (13:27)
[2022-09-23] MEDS: Ondansetron ODT 4 MG TAB.RAPDIS TRANSLINGU (13:27)
== END 2022-09-23 14:30 | disposition still patient (30) ==
PROVIDERS: Emergency Provider Student in an Organized Health Care Education/Training Program; PCP Internal Medicine
DX: S01.01XA Laceration without foreign body of scalp, initial encounter (principal); W01.0XXA Fall on same level from slipping, tripping and stumbling without subsequent striking against object, initial encounter; Y93.89 Activity, other specified; Y92.019 Unspecified place in single-family (private) house as the place of occurrence of the external cause; Y99.9 Unspecified external cause status
CPT/HCPCS: 12001; 70450; 72125; 99283; 99284

== ENCOUNTER 2022-10-13 10:07 | Outpatient (REF) | payer MEDICARE, MEDICAID, SELFPAY ==
--- NOTE | ~2022-10-13 | XR_ITS ---
EXAMINATION: XR KNEE AP STANDING CLINICAL INFORMATION: Pain right knee COMPARISON: None TECHNIQUE: AP bilateral standing view of the knees was obtained. FINDINGS: There is normal symmetry of bilateral knee joints without bony erosive changes or loose bodies. The joint space is maintained normal. No fracture or dislocation seen. XR/XR knee standing BI IMPRESSION: Unremarkable bilateral knee exam.
== END 2022-10-13 10:08 | disposition home or self-care (01) ==
LOC: HO.XRAY 10:07
PROVIDERS: PCP Internal Medicine; Referring Provider Physician Assistant; Visit Provider Internal Medicine
DX: M25.561 Pain in right knee (principal); M25.562 Pain in left knee
CPT/HCPCS: 73565

== ENCOUNTER 2022-10-15 05:43 | Outpatient (REF) | payer MEDICARE, MEDICAID, SELFPAY | END 2022-10-15 05:44 | disposition home or self-care (01) | LOC: HO.HOSX 05:43 | PROVIDERS: Visit Provider Physician Assistant | DX: Z13.89 Encounter for screening for other disorder (principal) ==

== ENCOUNTER 2022-10-18 10:09 | Outpatient (REF) | payer MEDICARE, MEDICAID, SELFPAY ==
--- NOTE | ~2022-10-18 | MM_ITS ---
EXAMINATION: MM SCREENING DIGITAL BREAST TOMOSYNTHESIS, BILATERAL CLINICAL INFORMATION: Screening. Asymptomatic. The lifetime risk of breast cancer based on the Tyrer-Cuzick Model is 3.7%. COMPARISON: Mammography: 10/14/2021 and studies dating back to 09/20/2019. TECHNIQUE: Digital breast tomosynthesis is performed in both the craniocaudal and mediolateral oblique views along with computer-aided detection (CAD). Synthesized 2D images are generated from the tomosynthesis. FINDINGS: There are scattered areas of fibroglandular density (ACR BI-RADS breast composition Category b). RIGHT BREAST: There is a stable parenchymal pattern of the right breast without new abnormal dominant mass or suspicious grouping of microcalcifications. LEFT BREAST: In the retroareolar region of the left breast there is a region of increased density with some irregularity which is more prominent than on prior studies. Spot compression views are recommended and if clinically warranted ultrasound could be performed at that time. MM/MM tomosynthesis screening BI IMPRESSION: Left breast retroareolar density for further evaluation. ASSESSMENT: BI-RADS 0: Incomplete - Need Additional Imaging Evaluation RECOMMENDATION: 1. Additional views of the left breast. 2. Targeted ultrasound if warranted after review of the additional views. 3. Radiology department staff will contact the patient for additional imaging. This patient's information was entered into a reminder system with a target due date for their next mammogram.
== END 2022-10-18 10:10 | disposition home or self-care (01) ==
LOC: HO.MAMMO 10:09
PROVIDERS: PCP Internal Medicine; Visit Provider Internal Medicine
DX: Z12.31 Encounter for screening mammogram for malignant neoplasm of breast (principal)
CPT/HCPCS: 77063; 77067

== ENCOUNTER 2022-10-18 11:02 | Outpatient (REF) | payer MEDICARE, MEDICAID, SELFPAY ==
--- NOTE | ~2022-10-18 | XR_ITS ---
EXAMINATION: XR KNEE, RIGHT XR KNEE, LEFT XR KNEE AP STANDING CLINICAL INFORMATION: Bilateral knee pain. COMPARISON: Radiographs dated 10/13/2022. TECHNIQUE: Lateral and axial views of the right knee were obtained. Lateral and axial views of the left knee were obtained. AP bilateral standing view of the knees was obtained. FINDINGS: Bones and soft tissues are normal. No fracture or joint effusion. Alignment is anatomic bilaterally. There is no significant varus or valgus configuration bilaterally. The bilateral lateral, medial and patellofemoral joint spaces are well maintained. No abnormal soft tissue calcification. XR/XR knee LT 2V IMPRESSION: Normal bilateral knees.
--- NOTE | ~2022-10-18 | XR_ITS ---
EXAMINATION: XR KNEE, RIGHT XR KNEE, LEFT XR KNEE AP STANDING CLINICAL INFORMATION: Bilateral knee pain. COMPARISON: Radiographs dated 10/13/2022. TECHNIQUE: Lateral and axial views of the right knee were obtained. Lateral and axial views of the left knee were obtained. AP bilateral standing view of the knees was obtained. FINDINGS: Bones and soft tissues are normal. No fracture or joint effusion. Alignment is anatomic bilaterally. There is no significant varus or valgus configuration bilaterally. The bilateral lateral, medial and patellofemoral joint spaces are well maintained. No abnormal soft tissue calcification. XR/XR knee standing BI IMPRESSION: Normal bilateral knees.
--- NOTE | ~2022-10-18 | XR_ITS ---
EXAMINATION: XR KNEE, RIGHT XR KNEE, LEFT XR KNEE AP STANDING CLINICAL INFORMATION: Bilateral knee pain. COMPARISON: Radiographs dated 10/13/2022. TECHNIQUE: Lateral and axial views of the right knee were obtained. Lateral and axial views of the left knee were obtained. AP bilateral standing view of the knees was obtained. FINDINGS: Bones and soft tissues are normal. No fracture or joint effusion. Alignment is anatomic bilaterally. There is no significant varus or valgus configuration bilaterally. The bilateral lateral, medial and patellofemoral joint spaces are well maintained. No abnormal soft tissue calcification. XR/XR knee RT 2V IMPRESSION: Normal bilateral knees.
== END 2022-10-18 11:03 | disposition home or self-care (01) ==
LOC: HO.HOSX 11:02
PROVIDERS: Visit Provider Physician Assistant
DX: M22.2X2 Patellofemoral disorders, left knee (principal); M22.2X1 Patellofemoral disorders, right knee
CPT/HCPCS: 73560; 73565; 99212

== ENCOUNTER 2022-10-26 08:14 | Outpatient (REF) | payer MEDICARE, MEDICAID, SELFPAY ==
--- NOTE | ~2022-10-26 | MM_ITS ---
EXAMINATION: MM DIAGNOSTIC DIGITAL BREAST TOMOSYNTHESIS, LEFT CLINICAL INFORMATION: Recall from screening for increased attenuation anterior left breast, suspect incompletely compressed tissue. COMPARISON: Mammography: 10/18/2022, 10/14/2021, 09/25/2020, 09/20/2019 (new baseline). TECHNIQUE: Digital breast tomosynthesis is performed. 2D images are generated from the tomosynthesis. The following views are obtained: Spot CC, spot ML. FINDINGS: There are scattered areas of fibroglandular density (ACR BI-RADS breast composition Category b). The additional views show no developing density or interval mass or architectural abnormality from prior studies. Mild retroareolar duct ectasia is stable. No significant changes. Skin contours are smooth. Results are discussed with the patient at time of visit. MM/MM tomosynthesis added views L IMPRESSION: -Additional views show no significant changes from prior exams. ASSESSMENT: BI-RADS 2: Benign RECOMMENDATION: Routine annual mammography screening. This patient's information was entered into a reminder system with a target due date for their next mammogram.
== END 2022-10-26 08:15 | disposition home or self-care (01) ==
LOC: HO.MAMMO 08:14
PROVIDERS: PCP Internal Medicine; Visit Provider Internal Medicine
DX: R92.2 Inconclusive mammogram (principal)
CPT/HCPCS: 77061; 77065

== ENCOUNTER 2022-10-28 14:59 | Outpatient (REF) | payer MEDICARE, MEDICAID, SELFPAY ==
--- NOTE | ~2022-10-28 | XR_ITS ---
EXAMINATION: XR SHOULDER, RIGHT CLINICAL INFORMATION: Pain. COMPARISON: Radiographs dated 09/16/2022. TECHNIQUE: AP internal and external rotation views of the right shoulder are submitted. FINDINGS: There is bony demineralization. A mildly displaced fracture of the greater tuberosity of the proximal right humerus is redemonstrated, in stable alignment. The glenohumeral joint is intact. There is mild osteoarthritic change of the glenohumeral joint. The acromioclavicular and coracoclavicular intervals are normal. There is marked osteoarthritic change of the acromioclavicular joint. No soft tissue calcification or foreign body is seen. There is no right pneumothorax. XR/XR shoulder RT min 2V IMPRESSION: 1. There is stable alignment of a mildly displaced fracture of the greater tuberosity of the right humeral head. No significant callus formation is seen. 2. There is mild osteoarthritic change of the right glenohumeral joint, and marked osteoarthritic change is seen of the right acromioclavicular joint.
== END 2022-10-28 15:00 | disposition home or self-care (01) ==
LOC: HO.HOSX 14:59
PROVIDERS: Visit Provider Physician Assistant
DX: S42.251D Displaced fracture of greater tuberosity of right humerus, subsequent encounter for fracture with routine healing (principal)
CPT/HCPCS: 73030

== ENCOUNTER 2023-01-24 06:59 | Outpatient (REF) | payer MEDICARE, MEDICAID, SELFPAY | END 2023-01-24 07:00 | disposition home or self-care (01) | LOC: HO.HOSX 06:59 | PROVIDERS: Visit Provider Physician Assistant | DX: Z13.89 Encounter for screening for other disorder (principal) ==

== ENCOUNTER 2023-06-21 09:45 | Outpatient (AMB) | payer MEDICARE, MEDICAID, SELFPAY ==
[2023-06-21 11:38] VITALS: BP 128/76; PULSE 80; TEMP 36.6; O2SAT 97; BMI 23.0
--- NOTE | 2023-06-21 11:38 | MHC.OFFWIV ---
Intake Vital Signs 06/21/23 11:38 Height 5 ft 5 in Weight 138 lb BMI 23.0 BP 128/76 Blood Pressure Location Lt brachial Position Sitting Pulse 80 Pulse Source Pulse Oximeter Temp 97.9 F Temp Source Temporal Artery Scan Pulse Oximetry (%) 97 Intake Visit Reasons: EP, Upper back pain Intake Note: pt is here for c/o upper back pain/shouder pain Patient Tobacco Use Status: Former Tobacco user Allergies prednisone [PREDNISONE] Allergy (Unknown, Verified 06/21/23 11:38) HIVES Do you need a note to return to daycare/school/sports/work: Yes HPI HPI Comments History of Present Illness Details 67-year-old female who presents for neck pain. Patient states she has pain upper part of her shoulder on the left side. Present for several days pain lateral rotation. Fevers chills history of IVDU she has tried gentle massage point and heat which helps some as well as Motrin. PFSH Medical History (Updated 03/03/23 @ 13:54 by Jose Diaz MD) Bilateral knee pain Constipation Bloating Fracture of greater tuberosity of humerus Breast asymmetry Colonoscopy refused DDD (degenerative disc disease), lumbar Impaired glucose tolerance Surgical History History of back surgery Family History (Updated 11/17/22 @ 11:13 by Valerie Ernandez CMA) Father No problems noted. Mother Melanoma Brother Bladder cancer Sister Major depression FHx: mental illness Daughter Major depression Social History Housing: House Alcohol intake: current Patient Tobacco Use Status: Former Tobacco user Tobacco use type: Cigarette Years Smoked: quit 2014 e-Cigarette/Vaping Use: Never Used Second Hand Smoke Exposure: No Current occupational status: disabled Current occupation: left hand dominant Cognitive needs: No Hearing needs: No Vision needs: Yes Review of Systems ENT Reports neck pain Musc Reports neck pain Physical Exam Vital Signs: Last Vital Signs Temp 97.9 F 06/21/23 11:38 Pulse 80 06/21/23 11:38 BP 128/76 06/21/23 11:38 Pulse Ox 97 06/21/23 11:38 BMI result Body Mass Index 23.0 Const General: healthy appearing, comfortable, no acute distress and alert Orientation/consciousness: patient oriented x3 Limitations: no limitations HEENT Head: Yes normal to inspection Ears: hearing grossly normal bilaterally Resp Effort & Inspection: normal respiratory effort and able to speak in complete sentences Cardio Rate: regular rate Back/Spine/Pelvis Other: No midline tenderness to palpation. Trapezius muscle palpated with tenderness in the left side. Skin General skin exam: no rashes or lesions noted Neuro General: patient oriented x3 Extrem General: Yes normal to inspection Office Meds methylprednisolone sod suc(PF) 40 mg/mL solution for injection Performing Provider: JOHN Celestin [place] [facility] [place] [facility] Administered by: JOHN Celestin on 06/21/23 12:06 Dose Route Admin Location Dispensed Lot Number Expiration Date [place] [employer] 40 mg IM 1 mL Assessment & Plan Assessment & Plan (1) Muscle strain: Code(s): T14.8XXA - Other injury of unspecified body region, initial encounter Plan: VSS. On exam patient presents alert oriented no acute distress exam is notable for No midline tenderness to palpation. Trapezius muscle palpated with tenderness in the left side. exams findings consistent with muscle strain. Will provide trigger point injection using methylprednisone 40mg and lidocaine will also prescribed meloxicam as well as tizanidine Discharge instructions, follow up and treatment are discussed with patient in my usual fashion. Alternatives in treatment are also discussed. The patient will return for worsening symptoms or as needed. Advised that any labs/imaging ordered will be followed up on and contact made if further treatment needed. Counseled that patient's condition may require further evaluation and/or treatment. Symptoms of concern for worsening disorder discussed in detail in my customary manner. Patient does verbalize understanding of the plan, there are no apparent barriers to communication. The patient is given the opportunity to ask questions and have them answered to his/her satisfaction Orders: Orders AMB Methylprednisolone Injection Today T14.8XXA - Other injury of unspecified body region, initial encounter Medications: New meloxicam 7.5 mg PO DAILY 10 tabs 0RF tizanidine 2 mg PO Q8H PRN 10 tabs 0RF muscle spasticity Coding Level of Care Code Est Pt Level 3 (74243) Diagnoses Muscle strain T14.8XXA
== END 2023-06-21 11:56 | disposition home or self-care (01) ==
PROVIDERS: PCP Internal Medicine; Visit Provider Physician Assistant
DX: T14.8XXA Other injury of unspecified body region, initial encounter (principal)
CPT/HCPCS: 96372; 99213; J2920

== ENCOUNTER 2023-08-09 16:36 | Outpatient (AMB) | payer MEDICARE, MEDICAID, SELFPAY ==
[2023-08-09 16:39] VITALS: BP 140/82; PULSE 68; O2SAT 97
--- NOTE | 2023-08-09 16:39 | MHC.PC.OV ---
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: Not Required per policy Accompanied by: Self / Same As Patient Allergies prednisone [PREDNISONE] Allergy (Unknown, Verified 08/09/23 16:39) HIVES Medication List - Last Reconciled 08/09/23 by Jose Diaz MD acetaminophen 650 mg (2 x 325 mg) PO Q4-6H PRN 30 days albuterol sulfate 90 mcg/actuation (Ventolin HFA) 2 puffs inhalation Q6H PRN alprazolam 0.25 mg PO BEDTIME PRN cane As directed fexofenadine (Corrine Allergy) 180 mg PO DAILY 90 days fluticasone propionate 50 mcg/actuation 2 sprays intranasal DAILY hydrocortisone 1% (Anti-Itch (hydrocortisone)) 1 appl topical TID PRN hydroxyzine HCl 25 mg PO BID ibuprofen 600 mg PO TID PRN meloxicam 7.5 mg PO DAILY sennosides-docusate sodium 8.6-50 mg (Senna-S) 2 tab-caps (2 x 8.6-50 mg) PO BEDTIME 30 days sertraline 200 mg (2 x 100 mg) PO DAILY tizanidine 2 mg PO Q8H PRN triamcinolone acetonide 0.5% 1 appl topical BID Tobacco use date assessed: 09/29/22 Fall risk assessment: No Falls in past year Last assessed Fall Risk: 08/09/23 Dental Screening Dental Screen Date: 08/09/23 Did you have a dental visit in the last 12 months?: Yes Did you have a dental problem in the last 6 months where you did not have access to dental care?: No Was dental information given to patient?: Patient has dentist HPI Anxiety, Panic Attacks, Depression HPI Details 68-year-old female with history of generalized anxiety disorder hypercholesterolemia impaired glucose tolerance osteoarthritis of the knee coming in for follow-up. Last seen in November 2022 had a closed fracture of the right proximal humerus being followed up by orthopedics. Mammogram is up-to-date colonoscopy is up-to-date bone density is up-to-date review of the notes in June was seen in the Urgent Center having upper back pain patient was given an injection 40 mg of methylprednisolone in IM. PAtient is teary in the office and has not seen therapist > 6 months. PAtient has been stressed and was able to wean off zoloft but with the stress, would like to have counseling. . Patient is complaining about having hot flashes and discussed about the blood work needing to be done.. [facility] Medical History Bilateral knee pain Constipation Bloating Fracture of greater tuberosity of humerus Breast asymmetry Colonoscopy refused DDD (degenerative disc disease), lumbar Impaired glucose tolerance Surgical History History of back surgery Family History Father No problems noted. Mother Melanoma Brother Bladder cancer Sister Major depression FHx: mental illness Daughter Major depression Social History Housing: House Alcohol intake: current Patient Tobacco Use Status: Former Tobacco user Tobacco use type: Cigarette Years Smoked: quit 2014 e-Cigarette/Vaping Use: Never Used Second Hand Smoke Exposure: No Current occupational status: disabled Current occupation: left hand dominant Cognitive needs: No Hearing needs: No Vision needs: Yes Questionnaire Thrive Questionnaire Date Thrive assessed: 09/29/22 DENA-7 AMB Questionnaire DENA-7 Date DENA - 7 assessed: 09/29/22 Source: Developed by Drs. Byron Zavala, Faith Roberto, Sylvain Maya and colleagues, with an educational olga lidia from [employer]. Physical exam (Primary Care) Vital Signs: Last Vital Signs Pulse 68 08/09/23 16:39 BP 140/82 H 08/09/23 16:39 Pulse Ox 97 08/09/23 16:39 Oxygen Delivery Method Room Air 08/09/23 16:39 Tobacco/Smoking Status: Tobacco use Status Tobacco use date assessed 09/29/22 08/09/23 16:40 Patient Tobacco Use Status Former Tobacco user 08/09/23 16:40 Tobacco use type Cigarette 08/09/23 16:40 e-Cigarette/Vaping Use Never Used 08/09/23 16:40 Thrive Assessment: Date of Thrive Assessment Date Thrive assessed 09/29/22 08/09/23 16:40 Const General: alert; No acute distress Eyes Conjunctivae: conjunctivae normal Resp Auscultation: clear to auscultation bilaterally Cardio Rate: regular rate Rhythm: regular rhythm GI Inspection: Yes normal to inspection Extrem General: Yes normal to inspection and No edema Office Procedures Flu Questionnaire Does the patient have a severe egg allergy?: No Does the patient have severe life threatening allergies?: No Does the patient have a fever or illness today?: No Has the patient ever had Guillain-Kittrell Syndrome?: No Has the patient ever had any past reaction to a flu shot?: No Immunizations flu vacc [id number] 6mos up(PF) 60 mcg(15 mcgx4)/0.5 mL IM syringe Performing Provider: Jose Diaz MD Performing Location: [facility] Administered by: Fermin Gómez on 08/09/23 17:27 Dose Route Admin Location Dispensed Lot Number Expiration Date [employer] 0.5 mL IM Right Deltoid 0.5 mL [id number] 03/11/24 31614-517-11 [employer] VIS Given Date VIS Provided VIS Publication Date 08/09/23 Single Vaccine 21 Eligibility Eligibility Date Funding Source Not [facility] Eligible 08/09/23 Private Assessment and Plan Assessment & Plan (1) Impaired glucose tolerance: Code(s): R73.02 - Impaired glucose tolerance (oral) Plan: Decrease the amount of carbohydrate intake, pasta, bread, rice and potatoes are all sugar and that is aside from all the sweet stuff, remember that fruits are good but they are Sweet also. Patient needs blood work (2) Hypercholesterolemia: Code(s): E78.00 - Pure hypercholesterolemia, unspecified Plan: Avoid fried foods, chicken skin, eggs, butter margarine, pastries and meat. Be it pork or beef they have a lot of cholesterol LDL goal of less than 130 and triglyceride of less than 150. Patient needs blood work (3) Generalized anxiety disorder: Comment: CHD,2x a week Kelechi Renyaga ended August 2022 Code(s): F41.1 - Generalized anxiety disorder Plan: Will do a referral to [facility] and to continue with present medication of sertraline. (4) Blood pressure elevated without history of HTN: Code(s): R03.0 - Elevated blood-pressure reading, without diagnosis of hypertension Plan: advised to monitor the BP and record Orders: Orders Free T4 (Free Thyroxine) Today R73.02 - Impaired glucose tolerance (oral) Vitamin B12 and Folate Today R73.02 - Impaired glucose tolerance (oral) Complete Blood Count Auto Diff Today R73.02 - Impaired glucose tolerance (oral) Thyroid Stimulating Hormone Today R73.02 - Impaired glucose tolerance (oral) Vitamin D 25-OH Total Today R73.02 - Impaired glucose tolerance (oral) Influenza 4915-2018 Immunization Today Z23 - Encounter for immunization Referrals Psychiatry Referral F41.1 - Generalized anxiety disorder Coding Level of Care Code Est Pt Level 4 (76833) Diagnoses Impaired glucose tolerance R73.02 Hypercholesterolemia E78.00 Generalized anxiety disorder F41.1 Blood pressure elevated without history of HTN R03.0
== END 2023-08-09 17:32 | disposition home or self-care (01) ==
PROVIDERS: PCP Internal Medicine; Visit Provider Internal Medicine
DX: R73.02 Impaired glucose tolerance (oral) (principal); E78.00 Pure hypercholesterolemia, unspecified; F41.1 Generalized anxiety disorder; Z23 Encounter for immunization; R03.0 Elevated blood-pressure reading, without diagnosis of hypertension
CPT/HCPCS: 90471; 90686; 99214

== ENCOUNTER 2023-08-16 07:56 | Outpatient (REF) | payer MEDICARE, MEDICAID, SELFPAY ==
[2023-08-16 08:20] LABS: MANUAL DIFF FLAG NO
[2023-08-16 08:47] LABS: Basophils Absolute Auto 0.1 X10*3/uL (0.0-0.2); Eosinophils Absolute Auto 0.3 X10*3/uL (0.0-0.4); Eosinophils Percent Auto 4.7 % (0-4); Hematocrit 39.4 % (37.0-47.0); Imm Gran Abs Auto 0.01 X10*3/uL (0.00-0.03); Imm Gran Pct Auto 0.2 % (0.0-0.4); Lymphocytes Absolute Auto 2.6 X10*3/uL (1.2-4.9); Lymphocytes Percent Auto 44.5 % (20-40); Mean Corpuscular Hemoglobin 30.9 pg (27.0-33.0); Mean Corpuscular Volume 93.6 fL (80.0-98.0); Mean Platelet Volume 10.7 fL (9.4-12.3); Monocytes Absolute Auto 0.5 X10*3/uL (0.1-1.2); Neutrophils Absolute Auto 2.4 x10*3/uL (2.0-8.3); Neutrophils Percent Auto 41.6 % (45-73); Platelet Count 213 X10*3/uL (160-400); Red Blood Count 4.21 X10*6/uL (4.20-5.50); White Blood Count 5.8 X10*3/uL (4.8-10.8)
[2023-08-16 08:57] LABS: Estimated Average Glucose 103 mg/dL; Hemoglobin A1c % 5.2 % (<6.0)
[2023-08-16 10:10] LABS: Free T4 (Free Thyroxine) 1.21 ng/dL (0.71-1.85); Thyroid Stimulating Hormone 2.06 uIU/mL (0.32-4.0); Vitamin D 25-OH Total 23.8 ng/mL (>30)
[2023-08-16 10:15] LABS: Vitamin B12 490 pg/mL (200-900)
[2023-08-16 10:33] LABS: Alanine Aminotransferase 14 U/L (0-31); Albumin Level 3.9 g/dL (3.5-5.0); Alkaline Phosphatase 77 U/L (39-117); Anion Gap 13 (12-20); Aspartate Amino Transferase 16 U/L (5-31); Bilirubin Total 0.4 mg/dL (0.0-1.0); Blood Urea Nitrogen 21 mg/dL (9-16); Calcium 9.1 mg/dL (8.4-10.2); Carbon Dioxide 27 mmol/L (22-29); Chloride 108 mmol/L (96-108); Cholesterol 203 mg/dL (<200); Estimated Glomerular Filt Rate > 60; Glucose Random 96 mg/dL (60-115); HDL Cholesterol 74 mg/dL (>40); LDL Cholesterol Calculated 117 mg/dL (<100); Sodium 144 mmol/L (135-145); Total Protein 6.9 g/dL (6.5-8.0); Triglycerides 61 mg/dL (<150)
== END 2023-08-16 07:57 | disposition home or self-care (01) ==
LOC: HO.LAB 07:56
PROVIDERS: PCP Internal Medicine; Visit Provider Internal Medicine
DX: E78.00 Pure hypercholesterolemia, unspecified (principal); R73.02 Impaired glucose tolerance (oral); E55.9 Vitamin D deficiency, unspecified; M85.80 Other specified disorders of bone density and structure, unspecified site
CPT/HCPCS: 36415; 80053; 80061; 82306; 82607; 82746; 83036; 84439; 84443; 85025

== ENCOUNTER 2023-09-05 21:28 | Emergency (ER) | payer MEDICARE, MEDICAID, SELFPAY ==
--- NOTE | ~2023-09-05 | US_ITS ---
EXAMINATION: US VENOUS ULTRASOUND WITH DOPPLER LOWER EXTREMITY, LEFT CLINICAL INFORMATION: Left lower extremity pain. COMPARISON: None available. TECHNIQUE: Ultrasound of the deep veins is performed from the hip to the calf with compression sonography and color and pulse Doppler assessment. Spectral analysis with color-flow imaging is performed. FINDINGS: There is normal venous compression and respiratory variation and augmented flow. The visualized common femoral vein, superficial femoral vein, profunda femoral vein, popliteal vein, and the trifurcation region shows no evidence of deep venous thrombosis. There is no significant popliteal fossa cyst. If the patient's symptoms persist, followup ultrasound in 5 days 7 days might be of value to exclude proximal propagation from a non-visualized calf vein. US/US venous duplex LE IMPRESSION: No DVT demonstrated in the left lower extremity.
[2023-09-05 21:29] VITALS: BP 161/64; PULSE 84; RESP 18; TEMP 37.3; O2SAT 97; BMI 22.8
[2023-09-05 22:37] LABS: Basophils Percent Auto 0.5 % (0-2); Eosinophils Absolute Auto 0.2 X10*3/uL (0.0-0.4); Eosinophils Percent Auto 2.6 % (0-4); Hematocrit 35.8 % (37.0-47.0); Hemoglobin 11.8 g/dl (12.0-16.0); Imm Gran Abs Auto 0.03 X10*3/uL (0.00-0.03); Imm Gran Pct Auto 0.4 % (0.0-0.4); Lymphocytes Percent Auto 25.4 % (20-40); MANUAL DIFF FLAG NO; Mean Corpuscular Hemoglobin 30.1 pg (27.0-33.0); Mean Corpuscular Volume 91.3 fL (80.0-98.0); Mean Platelet Volume 10.5 fL (9.4-12.3); Monocytes Absolute Auto 0.6 X10*3/uL (0.1-1.2); Monocytes Percent Auto 7.8 % (2-11); Neutrophils Absolute Auto 4.9 x10*3/uL (2.0-8.3); Neutrophils Percent Auto 63.3 % (45-73); Platelet Count 208 X10*3/uL (160-400); Red Blood Count 3.92 X10*6/uL (4.20-5.50); Red Cell Distribution Width 12.8 % (11.0-16.0); White Blood Count 7.7 X10*3/uL (4.8-10.8)
[2023-09-05 22:50] LABS: Anion Gap 15 (12-20); Blood Urea Nitrogen 20 mg/dL (9-16); Calcium 9.3 mg/dL (8.4-10.2); Carbon Dioxide 22 mmol/L (22-29); Chloride 112 mmol/L (96-108); Creatinine Clr Calc Pharmacy 58.1; Estimated Glomerular Filt Rate > 60; Glucose Random 99 mg/dL (60-115); Potassium 4.2 mmol/L (3.3-5.1); Sodium 145 mmol/L (135-145)
[2023-09-05 22:54] LABS: D Dimer High Sensitivity < 150 NG/ML
--- NOTE | 2023-09-06 00:05 | ED_ITS ---
HPI - General Adult General Chief complaint: Extremity Problem Stated complaint: left leg pain/leg all of a sudden gave out Time Seen by Provider: 09/05/23 23:31 Source: patient, RN notes reviewed and old records reviewed Mode of arrival: ambulatory Limitations: no limitations History of Present Illness HPI narrative: 68-year-old female presents for evaluation of left leg pain. Patient reports that she was sitting down during [place]. She got up and took a few steps before feeling a sharp pain behind her left knee she reports that she can feel the pain in her left calf the pain is worse with walking. She is unable to bear weight due to the pain denies any left ankle or foot pain denies any history of DVT Related Data Home Medications Medication Instructions Recorded Confirmed hydroxyzine HCl 25 mg tablet 25 mg PO BID 07/05/22 08/09/23 Previous Rx's Medication Instructions Recorded cane #1 ea 08/19/21 hydrocortisone 1 % lotion 1 appl topical TID PRN skin 06/01/22 (Anti-Itch (hydrocortisone)) irritation #120 mL triamcinolone acetonide 0.5 % 1 appl topical BID #60 grams 06/28/22 topical cream acetaminophen 325 mg tablet 650 mg (2 x 325 mg) PO Q4-6H PRN 07/05/22 fever or pain 30 days #240 tabs sennosides 8.6 mg-docusate sodium 2 tab-cap (2 x 8.6-50 mg) PO 09/24/22 50 mg tablet (Senna-S) BEDTIME 30 days #60 tabs ibuprofen 600 mg tablet 600 mg PO TID PRN pain #45 tabs 10/04/22 albuterol sulfate 90 mcg/actuation 2 puff inhalation Q6H PRN 11/17/22 aerosol inhaler (Ventolin HFA) shortness of breath or wheezing #8.5 grams fexofenadine 180 mg tablet 180 mg PO DAILY 90 days #90 tabs 11/22/22 (Corrine Allergy) fluticasone propionate 50 2 spray intranasal DAILY #48 grams 12/13/22 mcg/actuation nasal spray,suspension meloxicam 7.5 mg tablet 7.5 mg PO DAILY #10 tabs 06/21/23 tizanidine 2 mg tablet 2 mg PO Q8H PRN muscle spasticity 06/21/23 #10 tabs sertraline 100 mg tablet 200 mg (2 x 100 mg) PO DAILY #30 08/03/23 tabs alprazolam 0.25 mg tablet 0.25 mg PO BEDTIME PRN sleep #20 08/25/23 tabs Allergies Allergy/AdvReac Type Severity Reaction Status Date / Time prednisone [PREDNISONE] Allergy Unknown HIVES Verified 09/05/23 21:58 Review of Systems 2 Musculoskeletal: Musculoskeletal: Reports other ( pain behind left knee and calf) [facility] Past Medical History Medical History Bilateral knee pain Constipation Bloating Fracture of greater tuberosity of humerus Breast asymmetry Colonoscopy refused DDD (degenerative disc disease), lumbar Impaired glucose tolerance Surgical History History of back surgery Family History Family History Father No problems noted. Mother Melanoma Brother Bladder cancer Sister Major depression FHx: mental illness Daughter Major depression Social History Social History Housing: House Alcohol intake: current Patient Tobacco Use Status: Former Tobacco user Tobacco use type: Cigarette Years Smoked: quit 2014 e-Cigarette/Vaping Use: Never Used Second Hand Smoke Exposure: No Advance Directives: No Advance Directives Information Provided: No Current occupational status: disabled Current occupation: left hand dominant Cognitive needs: No Hearing needs: No Vision needs: Yes Physical Exam ED Vital Signs: Vital Signs - 24 hr 09/05/23 21:29 Temperature 99.2 F Pulse Rate 84 Respiratory Rate 18 Blood Pressure 161/64 H Pulse Oximetry 97 Oxygen Delivery Method Room Air BMI result Body Mass Index 22.8 Const General: healthy appearing, comfortable, no acute distress, alert and awake Nutritional Appearance: well nourished Orientation/consciousness: patient oriented x3 HENMT Head: Yes normocephalic and Yes atraumatic Eyes Eyelids: Yes eyelids normal Conjunctivae: conjunctivae normal Sclerae: sclerae normal Corneas: corneas normal Pupils: Equal, round and reactive pupils present EOM: EOMs intact bilaterally Neck Neck: Yes full ROM Resp Effort & Inspection: normal respiratory effort, able to speak in complete sentences and not labored GI Inspection: No distended Palpation (GI): Soft to palpation, not firm, nontender, no guarding and not rigid Skin General skin exam: elasticity normal Neuro General: patient oriented x3 Cranial nerves: Yes Equal, round and reactive pupils present and Yes Bilaterally intact EOM present Cognition (Neuro): normal cognition Extrem Other: no obvious visual deformity to the left lower extremity. The patient is tender behind the left knee in the popliteal region as well as both left proximal calf. negative Rogers test. She is able to dorsiflex the left foot without any difficulty Medical Decision Making Medical Decision Making MDM Narrative: history exam is most consistent with a muscle strain or muscle tear or a ruptured Ruiz cyst. DVT is less likely given the sudden onset of her pain. Her will get an ultrasound to evaluate for fluid collection and rule out DVT Differential Diagnosis Differential Diagnoses: The differential diagnosis associated with the presentation includes muscle strain DVT muscle tear Ruiz's cyst Ruptured Ruiz cyst Lab Data 09/05/23 22:32 09/05/23 22:32 Labs: Lab Results 09/05/23 Range/Units 22:32 WBC 7.7 (4.8-10.8) X10*3/uL RBC 3.92 L (4.20-5.50) X10*6/uL Hgb 11.8 L (12.0-16.0) g/dl Hct 35.8 L (37.0-47.0) % MCV 91.3 (80.0-98.0) fL MCH 30.1 (27.0-33.0) pg MCHC 33.0 (31.0-35.0) g/dl RDW 12.8 (11.0-16.0) % Plt Count 208 (160-400) X10*3/uL MPV 10.5 (9.4-12.3) fL Immature Gran % (Auto) 0.4 (0.0-0.4) % Neut % (Auto) 63.3 (45-73) % Lymph % (Auto) 25.4 (20-40) % [place] % (Auto) 7.8 (2-11) % Eos % (Auto) 2.6 (0-4) % Baso % (Auto) 0.5 (0-2) % Lymph # (Auto) 2.0 (1.2-4.9) X10*3/uL [place] # (Auto) 0.6 (0.1-1.2) X10*3/uL Eos # (Auto) 0.2 (0.0-0.4) X10*3/uL Baso # (Auto) 0.0 (0.0-0.2) X10*3/uL Abs Immat Gran (auto) 0.03 (0.00-0.03) X10*3/uL Absolute Neuts (auto) 4.9 (2.0-8.3) x10*3/uL Absolute Nucleated RBC 0.000 (0.0-0.012) X10*3/uL Nucleated RBC % (auto) 0.0 (0.0-0.2) /100WBC D-Dimer High Sensitivty < 150 NG/ML Sodium 145 (135-145) mmol/L Potassium 4.2 (3.3-5.1) mmol/L Chloride 112 H (96-108) mmol/L Carbon Dioxide 22 (22-29) mmol/L Anion Gap 15 (12-20) BUN 20 H (9-16) mg/dL Creatinine 0.89 (0.5-1.4) mg/dL Estim Creat Clear Calc 58.1 Estimated GFR > 60 Random Glucose 99 (60-115) mg/dL Calcium 9.3 (8.4-10.2) mg/dL Discharge Plan Discharge Clinical Impression: Strain of left calf muscle Patient Disposition: Home, Self-Care Instructions: Muscle Strain (ED) Additional Instructions: your ultrasound did not show any evidence of DVT or fluid collection to suggest hematoma. Use ibuprofen/ Tylenol for pain you may follow-up with orthopedics if your symptoms do not improved Prescriptions: No Action triamcinolone acetonide 0.5 % cream 1 appl topical BID Qty: 60 0RF ibuprofen 600 mg tablet 600 mg PO TID PRN (Reason: pain) Qty: 45 0RF fexofenadine [Corrine Allergy] 180 mg tablet 180 mg PO DAILY 90 Days Qty: 90 1RF fluticasone propionate 50 mcg/actuation spray,suspension 2 spray intranasal DAILY Qty: 48 11RF sertraline 100 mg tablet 200 mg PO DAILY Qty: 30 2RF alprazolam 0.25 mg tablet 0.25 mg PO BEDTIME PRN (Reason: sleep) Qty: 20 0RF sennosides-docusate sodium [Senna-S] 8.6-50 mg tablet 2 tab-cap PO BEDTIME 30 Days Qty: 60 2RF hydrocortisone [Anti-Itch (HC)] 1 % lotion 1 appl topical TID PRN (Reason: skin irritation) Qty: 120 0RF albuterol sulfate [Ventolin HFA] 90 mcg/actuation HFA aerosol inhaler 2 puff inhalation Q6H PRN (Reason: shortness of breath or wheezing) Qty: 8.5 0RF tizanidine 2 mg tablet 2 mg PO Q8H PRN (Reason: muscle spasticity) Qty: 10 0RF meloxicam 7.5 mg tablet 7.5 mg PO DAILY Qty: 10 0RF (DME) cane Device See Rx Instructions .Route Qty: 1 0RF Rx Instructions: As directed hydroxyzine HCl 25 mg tablet 25 mg PO BID acetaminophen 325 mg tablet 650 mg PO Q4-6H PRN (Reason: fever or pain) 30 Days Qty: 240 0RF Referrals: Jj Neil MD [Physician] - (left leg pain) Interventions: ED Discharge Assessment Last Done: 09/06/23 00:39 Discharge Date/Time: 09/06/23 00:41
== END 2023-09-06 00:41 | disposition home or self-care (01) ==
PROVIDERS: Emergency Provider Emergency Medicine; PCP Internal Medicine
DX: S86.112A Strain of other muscle(s) and tendon(s) of posterior muscle group at lower leg level, left leg, initial encounter (principal); M79.605 Pain in left leg; X58.XXXA Exposure to other specified factors, initial encounter; Y93.9 Activity, unspecified; Y92.9 Unspecified place or not applicable; Y99.9 Unspecified external cause status
CPT/HCPCS: 36415; 80048; 85025; 85379; 93971; 99282; 99284

== ENCOUNTER 2023-09-27 09:55 | Outpatient (AMB) | payer MEDICARE, MEDICAID, SELFPAY ==
[2023-09-27 09:56] VITALS: BP 136/82; PULSE 67; O2SAT 96
--- NOTE | 2023-09-27 09:56 | A.OFFPC_ITS ---
Vital Signs 09/27/23 09:56 Height 5 ft 6 in BMI Reason not done Patient refused/unable BP 136/82 Blood Pressure Location Lt brachial Position Sitting Pulse 67 Pulse Source Pulse Oximeter Pulse Oximetry (%) 96 Oxygen Delivery Method Room Air Intake Visit Reasons: PE Intake Note: Patient is here today for a physical. Bottom Liner Required: No Allergies trazodone Adverse Reaction (Intermediate, Unverified 09/27/23 10:49) Nightmare Medication List - Last Reconciled 09/27/23 by Jose Diaz MD acetaminophen 650 mg (2 x 325 mg) PO Q4-6H PRN 30 days albuterol sulfate 90 mcg/actuation (Ventolin HFA) 2 puffs inhalation Q6H PRN alprazolam 0.25 mg PO BEDTIME PRN cane As directed fexofenadine (Corrine Allergy) 180 mg PO DAILY 90 days fluticasone propionate 50 mcg/actuation 2 sprays intranasal DAILY hydrocortisone 1% (Anti-Itch (hydrocortisone)) 1 appl topical TID PRN hydroxyzine HCl 25 mg PO BID sennosides-docusate sodium 8.6-50 mg (Senna-S) 2 tab-caps (2 x 8.6-50 mg) PO BEDTIME 30 days sertraline 150 mg PO DAILY triamcinolone acetonide 0.5% 1 appl topical BID Tobacco use date assessed: 09/27/23 Fall risk assessment: No Falls in past year Last assessed Fall Risk: 09/27/23 Dental Screening Dental Screen Date: 09/27/23 Did you have a dental visit in the last 12 months?: Yes Did you have a dental problem in the last 6 months where you did not have access to dental care?: No Was dental information given to patient?: Patient has dentist HPI PE HPI Details 68-year-old female with a history of imp aired glucose tolerance hypercholesterolemia generalized anxiety disorder last seen in July 2023. Patient is here for physical exam noted elevated blood pressure before and advised to monitor. Patient has mammograms up-to-date due in October colonoscopy declined and bone density is up-to-date. Review of the notes ER visit September 15 for leg pain diagnosis of left calf muscle strain.. sick rivera congestion, cough, post nasal drip, PFSH Medical History Bilateral knee pain Constipation Bloating Fracture of greater tuberosity of humerus Breast asymmetry Colonoscopy refused DDD (degenerative disc disease), lumbar Impaired glucose tolerance Surgical History History of back surgery Family History Father No problems noted. Mother Melanoma Brother Bladder cancer Sister Major depression FHx: mental illness Daughter Major depression Social History (Updated 09/27/23 @ 10:54 by Jose Diaz MD) Housing: House Alcohol intake: current Comment: once a week 3 beers Patient Tobacco Use Status: Former Tobacco user Tobacco use type: Cigarette Years Smoked: quit 2014 e-Cigarette/Vaping Use: Never Used Second Hand Smoke Exposure: No Current occupational status: disabled Current occupation: left hand dominant Cognitive needs: No Hearing needs: No Vision needs: Yes Questionnaire PHQ-9 Over the last 2 weeks, how often have you been bothered by any of the following problems? 1. Little interest or pleasure in doing things: nearly every day 2. Feeling down, depressed, or hopeless: nearly every day 3. Trouble falling or staying asleep, or sleeping too much: nearly every day 4. Feeling tired or having little energy: more than half the days 5. Poor appetite or overeating: several days 6. Feeling bad about yourself - or that you are a failure or have let yourself or your family down: nearly every day 7. Trouble concentrating on things, such as reading the newspaper or watching television: nearly every day 8. Moving or speaking so slowly that other people could have noticed. Or the opposite - being so fidgety or restless that you have been moving around a lot more than usual: nearly every day 9. Thoughts that you would be better off or of hurting yourself in some way: not at all Total score: 21 Depression Screening Interpretation: Positive Depression Screening Follow-up: Existing condition and In treatment Depression Screening Done: Yes Source: Developed by Drs. Byron Zavala, Faith Roberto, Sylvain Maya and colleagues, with an educational olga lidia from [employer]. Thrive Questionnaire Date Thrive assessed: 09/27/23 I am a: Patient What is your living situation today?: I have a steady place to live Within the past 12 months, did the food you bought not last and you didn't have the money to get more?: Never true Within the past 12 months, did you worry whether your food would run out before you got money to buy more?: Never true Do you have trouble paying for medicines?: No Do you have trouble getting transportation to medical appointments?: No Do you have trouble paying your heating and electricity bill?: No Do you have trouble taking care of your child, family member or friend?: No Do you have trouble with day-to-day activities such as bathing, preparing meals, shopping, managing finances, etc.?: No Are you currently unemployed and looking for a job?: No Are you interested in more education?: No AUDIT C Alcohol Use Questionnaire (AUDIT-C) 1. How often do you have a drink containing alcohol?: Monthly or less 2. How many drinks containing alcohol do you have on a typical day when you are drinking?: 1 or 2 3. How often do you have six or more drinks on one occasion?: Never Total Score: 1 Score Reviewed/Action Taken: No DENA-7 AMB Questionnaire DENA-7 Date DENA - 7 assessed: 09/27/23 Feeling nervous, anxious, or on edge: 3 = Nearly every day Not being able to stop or control worryin = Nearly every day Worrying too much about different things: 3 = Nearly every day Trouble relaxin = Nearly every day Being so restless that it is hard to sit still: 2 = More than half the days Becoming easily annoyed or irritable: 3 = Nearly every day Feeling afraid as if something awful might happen: 3 = Nearly every day Total DENA-7 score (0-4 normal; 5-9 mild; 10-14 moderate; 15-21 severe): 20 Source: Developed by Drs. Byron Zavala, Faith Roberto, Sylvain Maya and colleagues, with an educational olga lidia from [employer]. Review of Systems Const Denies poor appetite and Denies weakness Eyes Denies no additional complaints ENT Reports Normal hearing present, Denies dizziness, Denies nasal congestion, Denies tinnitus and Denies sore throat Card Denies chest pain, Denies syncope, Denies rapid heart rate and Denies dyspnea Resp Denies cough and Denies dyspnea GI Denies change in stool character, Reports constipation, Denies diarrhea, Denies nausea and Denies vomiting Denies urinary frequency, Denies difficulty voiding and Denies dysuria Neuro Reports Normal hearing present, Denies confusion, Denies dizziness, Denies syncope and Denies weakness Psych Denies confusion Physical exam (Primary Care) Vital Signs: Last Vital Signs Pulse 67 09/27/23 09:56 BP 136/82 09/27/23 09:56 Pulse Ox 96 09/27/23 09:56 Oxygen Delivery Method Room Air 09/27/23 09:56 Tobacco/Smoking Status: Tobacco use Status Tobacco use date assessed 09/27/23 09/27/23 09:57 Patient Tobacco Use Status Former Tobacco user 09/27/23 09:57 Tobacco use type Cigarette 09/27/23 09:57 e-Cigarette/Vaping Use Never Used 09/27/23 09:57 PHQ-9: PHQ-9 Score PHQ-9: Total score 21 09/27/23 10:21 Depression Screening Interpretation: Positive Depression Screening Follow-up: Existing condition and In treatment Thrive Assessment: Date of Thrive Assessment Date Thrive assessed 09/27/23 09/27/23 09:57 Const General: alert and awake; No confusion Orientation/consciousness: No confusion HENMT Head: Yes normocephalic Ears: external ears normal and TM's normal bilaterally Face and sinus: Yes normal facial exam Mouth: moist mucous membranes Throat: Yes tonsils normal Eyes Conjunctivae: conjunctivae normal Pupils: Equal, round and reactive pupils present and Pupil accommodation reflex normal Direct Ophthalmoscopy: normal light reflex Neck Neck: No lymphadenopathy Thyroid: Thyroid normal Chest Chest palpation & inspection: normal inspection of the chest Resp Effort & Inspection: normal respiratory effort and no audible wheezes Auscultation: clear to auscultation bilaterally, no crackles, no wheezes and lung sounds not diminished Cardio Rate: regular rate Rhythm: regular rhythm Peripheral pulses: radial pulses present and dorsalis pedis present GI Other: guaiac negative Palpation (GI): no masses Auscultation: normal bowel sounds and normoactive bowel sounds Skin General skin exam: no rashes or lesions noted Rashes: no rashes Neuro General: deep tendon reflexes 2+ bilaterally and No confusion Cranial nerves: Yes Equal, round and reactive pupils present, Yes Midline tongue present, Yes Normal hearing present and Yes Ability to bilaterally elevate shoulders present Cognition (Neuro): normal cognition Gait exam (Neuro): Normal gait present Motor exam (neuro): 5/5 motor strength present throughout Deep tendon reflexes (DTR's): Right brachioradialis reflex intensity grade: 2+, Left brachioradialis reflex intensity grade: 2+, Right patellar reflex intensity grade: 2+ and Left patellar reflex intensity grade: 2+ Extrem General: No edema Assessment and Plan Assessment & Plan (1) Annual physical exam: Code(s): Z00.00 - Encounter for general adult medical examination without abnormal findings (2) Blood pressure elevated without history of HTN: Code(s): R03.0 - Elevated blood-pressure reading, without diagnosis of hypertension Plan: Blood pressure is better (3) Impaired glucose tolerance: Code(s): R73.02 - Impaired glucose tolerance (oral) Plan: Decrease the amount of carbohydrate intake, pasta, bread, rice and potatoes are all sugar and that is aside from all the sweet stuff, remember that fruits are good but they are Sweet also. (4) Hypercholesterolemia: Code(s): E78.00 - Pure hypercholesterolemia, unspecified Plan: Avoid fried foods, chicken skin, eggs, butter margarine, pastries and meat. Be it pork or beef they have a lot of cholesterol LDL goal of less than 130 and triglyceride of less than 150 (5) Generalized anxiety disorder: Comment: CHD,2x a week Kelechi Reynaga ended August 2022 Code(s): F41.1 - Generalized anxiety disorder Plan: Continue with counseling and therapy (6) SOB (shortness of breath): Code(s): R06.02 - Shortness of breath Plan: xray of chest requested and PFT (7) Anemia: Code(s): D64.9 - Anemia, unspecified (8) Onychomycosis: Code(s): B35.1 - Tinea unguium Orders: Orders 2 XR DEXA axial skeleton 1 Month M85.80 - Other specified disorders of bone density and structure, unspecified site PFT pulmonary function test Today R06.02 - Shortness of breath XR chest 2V Today R06.02 - Shortness of breath Complete Blood Count Auto Diff Today D64.9 - Anemia, unspecified Ferritin Today D64.9 - Anemia, unspecified Reticulocyte Count Today D64.9 - Anemia, unspecified IRON PROFILE Today D64.9 - Anemia, unspecified Referrals Podiatry Referral B35.1 - Tinea unguium Medications: New ciclopirox 8% 1 appl topical BEDTIME 6.6 mL 1RF 4 weeks B35.1 - Tinea unguium Coding Level of Care Code Est Pt Prev Care >65y(24599) Diagnoses Annual physical exam Z00.00 Blood pressure elevated without history of HTN R03.0 Impaired glucose tolerance R73.02 Hypercholesterolemia E78.00 Generalized anxiety disorder F41.1 SOB (shortness of breath) R06.02 Anemia D64.9 Onychomycosis B35.1
== END 2023-09-27 11:25 | disposition home or self-care (01) ==
PROVIDERS: Visit Provider Internal Medicine
DX: Z00.00 Encounter for general adult medical examination without abnormal findings (principal); R03.0 Elevated blood-pressure reading, without diagnosis of hypertension; R73.02 Impaired glucose tolerance (oral); E78.00 Pure hypercholesterolemia, unspecified; F41.1 Generalized anxiety disorder; R06.02 Shortness of breath; D64.9 Anemia, unspecified; B35.1 Tinea unguium
CPT/HCPCS: 99397

== ENCOUNTER 2023-10-06 14:40 | Outpatient (REF) | payer MEDICARE, MEDICAID, SELFPAY ==
--- NOTE | ~2023-10-06 | XR_ITS ---
EXAMINATION: XR SHOULDER, RIGHT CLINICAL INFORMATION: Right posterior shoulder pain after fall COMPARISON: Shoulder radiograph 10/28/2022 TECHNIQUE: AP external rotation, Grashey, scapular Y, and axillary views of the right shoulder. FINDINGS: No acute fractures or dislocations of the right shoulder. Right greater tuberosity deformity from chronic fracture. Mild acromioclavicular joint osteoarthritis. Soft tissue structures are within normal limits. No radiopaque foreign bodies. XR/XR shoulder RT min 2V IMPRESSION: 1. No acute fracture or dislocation of the glenohumeral joint. 2. Mild acromioclavicular joint osteoarthritis. 3. Chronic right greater tuberosity deformity from chronic fracture.
--- NOTE | ~2023-10-06 | XR_ITS ---
EXAMINATION: XR CHEST CLINICAL INFORMATION: Chest congestion COMPARISON: None available. TECHNIQUE: 2 views of the chest were obtained. FINDINGS: No significant abnormality is noted involving the heart, lungs, mediastinum, bony thorax or soft tissues. XR/XR chest 2V IMPRESSION: Unremarkable examination.
[2023-10-06 15:03] LABS: MANUAL DIFF FLAG NO
[2023-10-06 15:34] LABS: Basophils Percent Auto 0.4 % (0-2); Eosinophils Absolute Auto 0.2 X10*3/uL (0.0-0.4); Eosinophils Percent Auto 2.5 % (0-4); Hematocrit 37.9 % (37.0-47.0); Hemoglobin 12.4 g/dl (12.0-16.0); Imm Gran Abs Auto 0.03 X10*3/uL (0.00-0.03); Imm Gran Pct Auto 0.4 % (0.0-0.4); Immature Retic Fraction 3.1 % (3.0-15.9); Lymphocytes Absolute Auto 1.8 X10*3/uL (1.2-4.9); Lymphocytes Percent Auto 23.8 % (20-40); Mean Corpuscular HGB Conc 32.7 g/dl (31.0-35.0); Mean Corpuscular Hemoglobin 30.7 pg (27.0-33.0); Mean Corpuscular Volume 93.8 fL (80.0-98.0); Mean Platelet Volume 10.4 fL (9.4-12.3); Monocytes Absolute Auto 0.6 X10*3/uL (0.1-1.2); Monocytes Percent Auto 7.5 % (2-11); Neutrophils Absolute Auto 4.9 x10*3/uL (2.0-8.3); Neutrophils Percent Auto 65.4 % (45-73); Platelet Count 202 X10*3/uL (160-400); Red Blood Count 4.04 X10*6/uL (4.20-5.50); Red Cell Distribution Width 12.6 % (11.0-16.0); Retic HGB Equivalent 34.4 pg (30.0-35.0); Reticulocyte Percent 1.2 % (0.5-1.8); Reticulocytes Absolute 0.049 X10*6/uL (0.026-0.095); White Blood Count 7.6 X10*3/uL (4.8-10.8)
[2023-10-06 16:16] LABS: Iron 40 mcg/dL (30-160); Percent Iron Saturation 15 % (15-50); Total Iron Binding Capacity 263 mcg/dL (228-428); Unsaturated Iron Binding 223 ug/dL
[2023-10-06 16:29] LABS: Ferritin 144 ng/mL (10-250)
== END 2023-10-06 14:41 | disposition home or self-care (01) ==
LOC: HO.XRAY 14:40
PROVIDERS: PCP Internal Medicine; Visit Provider Internal Medicine
DX: M25.511 Pain in right shoulder (principal); R06.02 Shortness of breath; D64.9 Anemia, unspecified
CPT/HCPCS: 36415; 71046; 73030; 82728; 83540; 85025; 85045

== ENCOUNTER 2023-12-29 10:39 | Outpatient (AMB) | payer MEDICARE, MEDICAID, SELFPAY ==
[2023-12-29 10:41] VITALS: BP 134/68; PULSE 78; O2SAT 98
--- NOTE | 2023-12-29 10:41 | MHC.PC.OV ---
Vital Signs 12/29/23 10:41 Height 5 ft 5 in BMI Reason not done Patient refused/unable BP 134/68 Blood Pressure Location Lt brachial Position Sitting Pulse 78 Pulse Source Pulse Oximeter Pulse Oximetry (%) 98 Oxygen Delivery Method Room Air Intake Visit Reasons: PFT Allergies trazodone Adverse Reaction (Intermediate, Verified 12/29/23 10:41) Nightmare Medication List - Last Reconciled 12/29/23 by Jose Diaz, acetaminophen 650 mg (2 x 325 mg) PO Q4-6H PRN 30 days albuterol sulfate 90 mcg/actuation (Ventolin HFA) 2 puffs inhalation Q6H PRN alprazolam 0.25 mg PO BEDTIME PRN cane As directed ciclopirox 8% 1 appl topical BEDTIME 4 weeks fexofenadine (Corrine Allergy) 180 mg PO DAILY 90 days fluticasone propionate 50 mcg/actuation 2 sprays intranasal DAILY hydrocortisone 1% (Anti-Itch (hydrocortisone)) 1 appl topical TID PRN hydroxyzine HCl 25 mg PO BID sennosides-docusate sodium 8.6-50 mg (Senna-S) 2 tab-caps (2 x 8.6-50 mg) PO BEDTIME 30 days sertraline 200 mg PO DAILY triamcinolone acetonide 0.5% 1 appl topical BID Tobacco use date assessed: 12/29/23 Fall risk assessment: No Falls in past year Last assessed Fall Risk: 12/29/23 Dental Screening Dental Screen Date: 12/29/23 Did you have a dental visit in the last 12 months?: Yes Did you have a dental problem in the last 6 months where you did not have access to dental care?: No Was dental information given to patient?: Patient has dentist HPI PFT HPI Details 68-year-old female with a history of impaired glucose tolerance hypercholesterolemia generalized anxiety disorder last seen in September 2023 and noted to have an elevated blood pressure. Patient is here for follow-up patient is due for mammogram and has declined colonoscopy. Patient has complained of right shoulder pain and an x-ray was done showing acromioclavicular joint arthritis PFSH Medical History Bilateral knee pain Constipation Bloating Fracture of greater tuberosity of humerus Breast asymmetry Colonoscopy refused DDD (degenerative disc disease), lumbar Impaired glucose tolerance Surgical History History of back surgery Family History Father No problems noted. Mother Melanoma Brother Bladder cancer Sister Major depression FHx: mental illness Daughter Major depression Social History (Updated 09/27/23 @ 10:54 by Jose Diaz MD) Housing: House Alcohol intake: current Comment: once a week 3 beers Patient Tobacco Use Status: Former Tobacco user Tobacco use type: Cigarette Years Smoked: quit 2014 e-Cigarette/Vaping Use: Never Used Second Hand Smoke Exposure: No Current occupational status: disabled Current occupation: left hand dominant Cognitive needs: No Hearing needs: No Vision needs: Yes Questionnaire PHQ-9 Over the last 2 weeks, how often have you been bothered by any of the following problems? 1. Little interest or pleasure in doing things: nearly every day 2. Feeling down, depressed, or hopeless: nearly every day 3. Trouble falling or staying asleep, or sleeping too much: nearly every day 4. Feeling tired or having little energy: more than half the days 5. Poor appetite or overeating: several days 6. Feeling bad about yourself - or that you are a failure or have let yourself or your family down: nearly every day 7. Trouble concentrating on things, such as reading the newspaper or watching television: nearly every day 8. Moving or speaking so slowly that other people could have noticed. Or the opposite - being so fidgety or restless that you have been moving around a lot more than usual: nearly every day 9. Thoughts that you would be better off or of hurting yourself in some way: not at all Total score: 21 Depression Screening Interpretation: Positive Depression Screening Follow-up: Existing condition and In treatment Depression Screening Done: Yes Source: Developed by Drs. Byron Zavala, Faith Roberto, Sylvain Maya and colleagues, with an educational olga lidia from [employer]. Thrive Questionnaire Date Thrive assessed: 12/29/23 I am a: Patient What is your living situation today?: I have a steady place to live Within the past 12 months, did the food you bought not last and you didn't have the money to get more?: Never true Within the past 12 months, did you worry whether your food would run out before you got money to buy more?: Never true Do you have trouble paying for medicines?: No Do you have trouble getting transportation to medical appointments?: No Do you have trouble paying your heating and electricity bill?: No Do you have trouble taking care of your child, family member or friend?: No Do you have trouble with day-to-day activities such as bathing, preparing meals, shopping, managing finances, etc.?: No Are you currently unemployed and looking for a job?: No Are you interested in more education?: No Currently or been in a relationship where the following occur: no concerns reported THRIVE Score: 0 AUDIT C Alcohol Use Questionnaire (AUDIT-C) 1. How often do you have a drink containing alcohol?: Monthly or less 2. How many drinks containing alcohol do you have on a typical day when you are drinking?: 1 or 2 3. How often do you have six or more drinks on one occasion?: Never Total Score: 1 Score Reviewed/Action Taken: No DENA-7 AMB Questionnaire DENA-7 Date DENA - 7 assessed: 12/29/23 Feeling nervous, anxious, or on edge: 3 = Nearly every day Not being able to stop or control worryin = Nearly every day Worrying too much about different things: 3 = Nearly every day Trouble relaxin = Nearly every day Being so restless that it is hard to sit still: 2 = More than half the days Becoming easily annoyed or irritable: 3 = Nearly every day Feeling afraid as if something awful might happen: 3 = Nearly every day Total DENA-7 score (0-4 normal; 5-9 mild; 10-14 moderate; 15-21 severe): 20 Source: Developed by Drs. Byron Zavala, Faith Roberto, Sylvain Maya and colleagues, with an educational olga lidia from [employer]. Physical exam (Primary Care) Vital Signs: Oxygen Delivery Method Room Air 12/29/23 10:41 Tobacco/Smoking Status: Tobacco use Status Tobacco use date assessed 09/27/23 09/27/23 09:57 Patient Tobacco Use Status Former Tobacco user 09/27/23 10:54 Tobacco use type Cigarette 09/27/23 10:54 e-Cigarette/Vaping Use Never Used 09/27/23 10:54 Depression Screening Interpretation: Positive Depression Screening Follow-up: Existing condition and In treatment Thrive Assessment: Date of Thrive Assessment Date Thrive assessed 09/27/23 09/27/23 09:57 Currently or been in a relationship where the following occur: no concerns reported Const General: alert; No acute distress Eyes Conjunctivae: conjunctivae normal Resp Auscultation: clear to auscultation bilaterally Cardio Rate: regular rate Rhythm: regular rhythm GI Inspection: Yes normal to inspection Extrem General: Yes normal to inspection and No edema Assessment and Plan Assessment & Plan (1) Right shoulder pain: Comment: Fall 10/05/2023 Code(s): M25.511 - Pain in right shoulder Plan: X-ray showing arthritis no fractures. (2) Blood pressure elevated without history of HTN: Code(s): R03.0 - Elevated blood-pressure reading, without diagnosis of hypertension Plan: Continue to monitor blood pressure (3) Breast cancer screening by mammogram: Code(s): Z12.31 - Encounter for screening mammogram for malignant neoplasm of breast Plan: Patient is reminded about the mammogram (4) Generalized anxiety disorder: Comment: CHD,2x a week Kelechi Reynaga ended August 2022 Code(s): F41.1 - Generalized anxiety disorder Plan: Continue with sertraline 150 mg once a day and alprazolam as needed Orders: Orders Liver Panel 4 Weeks B35.1 - Tinea unguium, R79.89 - Other specified abnormal findings of blood chemistry Medications: New sertraline 200 mg PO DAILY 90 caps 2RF F41.1 - Generalized anxiety disorder terbinafine HCl 250 mg PO DAILY 12 weeks 84 tabs 0RF B35.1 - Tinea unguium Coding Level of Care Code Est Pt Level 4 (09978) Diagnoses Right shoulder pain M25.511 Blood pressure elevated without history of HTN R03.0 Breast cancer screening by mammogram Z12. Generalized anxiety disorder F41.1
== END 2023-12-29 11:09 | disposition home or self-care (01) ==
PROVIDERS: PCP Internal Medicine; Visit Provider Internal Medicine
DX: M25.511 Pain in right shoulder (principal); R03.0 Elevated blood-pressure reading, without diagnosis of hypertension; Z12.31 Encounter for screening mammogram for malignant neoplasm of breast; F41.1 Generalized anxiety disorder
CPT/HCPCS: 99214

== ENCOUNTER 2024-10-05 11:05 | Outpatient (AMB) | payer MEDICARE, MEDICAID, SELFPAY ==
[2024-10-05 11:09] VITALS: BP 128/82; PULSE 66; O2SAT 97
--- NOTE | 2024-10-05 11:09 | MHC.PC.OV ---
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: No Accompanied by: Self / Same As Patient Allergies trazodone Adverse Reaction (Intermediate, Verified 10/05/24 11:14) Nightmare Medication List - Last Reconciled 10/05/24 by Jose Diaz MD acetaminophen 650 mg (2 x 325 mg) PO Q4-6H PRN 30 days albuterol sulfate 90 mcg/actuation (Ventolin HFA) 2 puffs inhalation Q6H PRN alprazolam 0.25 mg PO BEDTIME PRN cane As directed fexofenadine (Corrine Allergy) 180 mg PO DAILY 90 days fluticasone propionate 50 mcg/actuation 2 sprays intranasal DAILY hydrocortisone 1% (Anti-Itch (hydrocortisone)) 1 appl topical TID PRN hydroxyzine HCl 25 mg PO BID ibuprofen 600 mg PO TID PRN 7 days sennosides-docusate sodium 8.6-50 mg (Senna-S) 2 tab-caps (2 x 8.6-50 mg) PO BEDTIME 30 days sertraline 200 mg PO DAILY terbinafine HCl 250 mg PO DAILY 12 weeks triamcinolone acetonide 0.5% 1 appl topical BID Tobacco use date assessed: 10/05/24 Fall risk assessment: No Falls in past year Last assessed Fall Risk: 10/05/24 Dental Screening Dental Screen Date: 10/05/24 Did you have a dental visit in the last 12 months?: Yes Did you have a dental problem in the last 6 months where you did not have access to dental care?: No Was dental information given to patient?: Patient has dentist HPI Annual exam HPI Details hearing aids L eye cannot see since birthThe patient is a 69-year-old female presenting for a routine physical examination and evaluation of ongoing health issues. She reports a history of depression, which has been managed with Sertraline 200 mg once daily. No new activities were reported that exacerbate her condition. The patient has asthma and uses an Albuterol inhaler as needed, particularly during cold weather, but only sporadically. She denies frequent use. She has an allergy to Trazodone, which is noted in her records. The patient experiences occasional constipation and has loose stools at other times, using stool softeners as needed. 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 The patient has noted bunions that cause discomfort, especially with certain footwear. She experiences no current significant exacerbation. She has cataracts and currently utilizes hearing aids, with new ones planned. The patient denies significant respiratory, gastrointestinal, or cardiovascular complaints. Her last mammogram was scheduled, and she declined a colonoscopy. She plans to get a bone density test soon. - Discussed the need for blood work, including fasting lipid panel and blood glucose levels. - Vaccinations update: Flu vaccine to be administered today. Discussion on the benefit of shingles vaccine. - Scheduled mammogram for November 09 and pending bone density test. - Recommended against dehydration; ensure adequate fluid intake with ibuprofen use. - Discussed the importance of healthy diet to manage bowel habits and constipated state. - Encourage podiatry consultation for bunions. - Reports alcohol consumption with meals, roughly once every two weeks. - Denies tobacco use. - No recreational drug use. - Uses CPAP for sleep apnea. - Enjoys occasional spicy foods but tries to avoid due to heartburn. - Shows interest in [employer] but not an active follower. - General: Denies fever, weight change. - Skin: No new rashes or lesions reported. - HEENT: Denies sore throat or vision changes. Uses hearing aids. - Respiratory: Denies dyspnea or persistent coughing. - Cardiovascular: Denies chest pain or palpitations. - Gastrointestinal: Denies nausea, vomiting, or dysphagia. Reports variable bowel habits. - Genitourinary: Denies dysuria, nocturia. - Neurological: Denies dizziness, headache. - Psychiatric: Expresses feeling supported with existing medication for depression. - Labs: To be scheduled for fasting lipid panel and fasting blood glucose. - Imaging: Scheduled mammogram on November 09, pending bone density test order. [facility] Medical History (Updated 10/05/24 @ 11:50 by Jose Diaz MD) Legal blindness of left eye, as defined in [place] Bilateral knee pain Constipation Bloating Fracture of greater tuberosity of humerus Breast asymmetry Colonoscopy refused DDD (degenerative disc disease), lumbar Impaired glucose tolerance Surgical History History of back surgery Family History Father No problems noted. Mother Melanoma Brother Bladder cancer Sister Major depression FHx: mental illness Daughter Major depression Social History (Updated 10/05/24 @ 11:36 by Jose Diaz MD) Housing: House Alcohol intake: current Comment: once a 2 week 3 beers Patient Tobacco Use Status: Former Tobacco user Tobacco use type: Cigarette Years Smoked: quit 2014 e-Cigarette/Vaping Use: Never Used Second Hand Smoke Exposure: No Current occupational status: disabled Current occupation: left hand dominant Cognitive needs: No Hearing needs: No Vision needs: Yes Questionnaire PHQ-9 Over the last 2 weeks, how often have you been bothered by any of the following problems? 1. Little interest or pleasure in doing things: not at all 2. Feeling down, depressed, or hopeless: not at all 3. Trouble falling or staying asleep, or sleeping too much: not at all 4. Feeling tired or having little energy: not at all 5. Poor appetite or overeating: not at all 6. Feeling bad about yourself - or that you are a failure or have let yourself or your family down: not at all 7. Trouble concentrating on things, such as reading the newspaper or watching television: not at all 8. Moving or speaking so slowly that other people could have noticed. Or the opposite - being so fidgety or restless that you have been moving around a lot more than usual: not at all 9. Thoughts that you would be better off or of hurting yourself in some way: not at all Total score: 0 Source: Developed by Drs. Byron Zavala, Faith Roberto, Sylvain Maya and colleagues, with an educational olga lidia from [employer]. Thrive Questionnaire Date Thrive assessed: 12/29/23 I am a: Patient What is your living situation today?: I have a steady place to live Within the past 12 months, did the food you bought not last and you didn't have the money to get more?: Never true Within the past 12 months, did you worry whether your food would run out before you got money to buy more?: Never true Do you have trouble paying for medicines?: No Do you have trouble getting transportation to medical appointments?: No Do you have trouble paying your heating and electricity bill?: No Do you have trouble taking care of your child, family member or friend?: No Do you have trouble with day-to-day activities such as bathing, preparing meals, shopping, managing finances, etc.?: No Are you currently unemployed and looking for a job?: No Are you interested in more education?: No Please select the resources that you would like help with: None Currently or been in a relationship where the following occur: I choose not to answer THRIVE Score: 0 AUDIT C Alcohol Use Questionnaire (AUDIT-C) 1. How often do you have a drink containing alcohol?: 2-4 times a month 2. How many drinks containing alcohol do you have on a typical day when you are drinking?: 1 or 2 3. How often do you have six or more drinks on one occasion?: Never Total Score: 2 DENA-7 AMB Questionnaire DENA-7 Date DENA - 7 assessed: 12/29/23 Feeling nervous, anxious, or on edge: 0 = Not at all Not being able to stop or control worryin = Not at all Worrying too much about different things: 0 = Not at all Trouble relaxin = Not at all Being so restless that it is hard to sit still: 0 = Not at all Becoming easily annoyed or irritable: 0 = Not at all Feeling afraid as if something awful might happen: 0 = Not at all Total DENA-7 score (0-4 normal; 5-9 mild; 10-14 moderate; 15-21 severe): 0 Source: Developed by Drs. Byron Zavala, Faith Roberto, Sylvain Maya and colleagues, with an educational olga lidia from [employer]. Review of Systems Const Denies poor appetite and Denies weakness Eyes Denies no additional complaints ENT Reports Normal hearing present, Denies dizziness, Denies nasal congestion, Denies tinnitus and Denies sore throat Card Denies chest pain, Denies syncope, Denies rapid heart rate and Denies dyspnea Resp Denies cough and Denies dyspnea GI Denies change in stool character, Reports constipation, Denies diarrhea, Denies nausea and Denies vomiting Denies urinary frequency, Denies difficulty voiding and Denies dysuria Neuro Reports Normal hearing present, Denies confusion, Denies dizziness, Denies syncope and Denies weakness Psych Denies confusion Physical exam (Primary Care) Vital Signs: Last Vital Signs Pulse 66 10/05/24 11:09 BP 128/82 10/05/24 11:09 Pulse Ox 97 10/05/24 11:09 Oxygen Delivery Method Room Air 10/05/24 11:09 Care Plan Goal for BP management: R big toe only white nail Tobacco/Smoking Status: Tobacco use Status Tobacco use date assessed 10/05/24 10/05/24 11:15 Patient Tobacco Use Status Former Tobacco user 10/05/24 11:15 Tobacco use type Cigarette 10/05/24 11:15 e-Cigarette/Vaping Use Never Used 10/05/24 11:15 PHQ-9: PHQ-9 Score PHQ-9: Total score 0 10/05/24 11:30 Thrive Assessment: Date of Thrive Assessment Date Thrive assessed 12/29/23 10/05/24 11:15 Currently or been in a relationship where the following occur: I choose not to answer Const General: No confusion Orientation/consciousness: No confusion HENMT Head: Yes normocephalic Ears: external ears normal and TM's normal bilaterally Face and sinus: Yes normal facial exam Mouth: moist mucous membranes Throat: Yes tonsils normal Eyes Conjunctivae: conjunctivae normal Pupils: Equal, round and reactive pupils present and Pupil accommodation reflex normal Direct Ophthalmoscopy: normal light reflex Neck Neck: No lymphadenopathy Thyroid: Thyroid normal Chest Chest palpation & inspection: normal inspection of the chest Resp Effort & Inspection: normal respiratory effort and no audible wheezes Auscultation: clear to auscultation bilaterally, no crackles, no wheezes and lung sounds not diminished Cardio Rate: regular rate Rhythm: regular rhythm Peripheral pulses: radial pulses present and dorsalis pedis present GI Other: guaiac negative Palpation (GI): no masses Auscultation: normal bowel sounds and normoactive bowel sounds Skin General skin exam: no rashes or lesions noted Rashes: no rashes Neuro General: No confusion Cranial nerves: Yes Equal, round and reactive pupils present and Yes Normal hearing present Cognition (Neuro): normal cognition Gait exam (Neuro): Normal gait present Motor exam (neuro): 5/5 motor strength present throughout Deep tendon reflexes (DTR's): Right brachioradialis reflex intensity grade: 2+, Left brachioradialis reflex intensity grade: 2+, Right patellar reflex intensity grade: 2+ and Left patellar reflex intensity grade: 2+ Extrem General: No edema Coding Level of Care Code Est Pt Prev Care >65y(15769) Diagnoses Annual physical exam Z00.00 Hypercholesterolemia E78.00 Impaired glucose tolerance R73.02 Osteopenia M85.80 Breast cancer screening by mammogram Z12. Generalized anxiety disorder F41.1 Colonoscopy refused Z53.20 Assessment & Plan Assessment & Plan (1) Annual physical exam: Code(s): Z00.00 - Encounter for general adult medical examination without abnormal findings Category: Medical (2) Hypercholesterolemia: Code(s): E78.00 - Pure hypercholesterolemia, unspecified Category: Medical (3) Impaired glucose tolerance: Code(s): R73.02 - Impaired glucose tolerance (oral) Category: Medical (4) Osteopenia: Code(s): M85.80 - Other specified disorders of bone density and structure, unspecified site Category: Medical (5) Breast cancer screening by mammogram: Code(s): Z12.31 - Encounter for screening mammogram for malignant neoplasm of breast Category: Medical (6) Generalized anxiety disorder: Comment: CHD,2x a week Kelechi Reynaga ended August 2022 Code(s): F41.1 - Generalized anxiety disorder Category: Medical (7) Colonoscopy refused: Code(s): Z53.20 - Procedure and treatment not carried out because of patient's decision for unspecified reasons Category: Medical Plan - Current medications including Sertraline, Hydroxyzine, Pantoprazole as needed, and Albuterol inhaler as needed. - Administer flu vaccination today. - Recommend Shingles vaccination at patient's earliest convenience. - Encourage lifestyle modifications to support gastrointestinal function. - Referral for podiatry consultation for management of bunions. - Complete blood work including cholesterol and blood glucose tests. - Schedule and complete bone density study. - Follow up in six months or as needed based on test results and clinical changes. I discussed the importance of controlling her depression with her current medication regimen, emphasizing its effectiveness along with Hydroxyzine for sleep. We reviewed the indication for the flu vaccination and encouraged the shingles vaccine to decrease her risk, explaining the two-part series and potential mild side effects. We addressed her need for ongoing podiatry management for her bunions, including footwear recommendations to prevent exacerbation. The patient declined the colonoscopy but agreed to schedule a bone density scan. We ensured she's aware to follow up in six months and discussed precautions with medications affecting kidney function, supported by ensuring adequate hydration. I provided anticipatory guidance regarding flu season and preventive measures against RSV and norovirus. - Schedule fasting blood work at the laboratory. - Receive flu vaccination today. - Consider receiving shingles vaccine as advised for protection. - Stay hydrated when taking ibuprofen to prevent kidney damage. - Contact podiatry for assistance with bunion management. - Maintain regular follow-up and yearly physicals. - Reach out for psychiatric support if feeling symptomatic despite medication. - Follow dietary advice to manage occasional constipation and improve bowel habits. - Follow precautionary advice during RSV season and practice good hand hygiene to prevent infections. - Return immediately for any acute health changes or concerns. Orders: Orders Complete Blood Count Auto Diff Today R73.02 - Impaired glucose tolerance (oral) Comprehensive Met. Panel Today R73.02 - Impaired glucose tolerance (oral) Free T4 (Free Thyroxine) Today R73.02 - Impaired glucose tolerance (oral) Hemoglobin A1c Today R73.02 - Impaired glucose tolerance (oral) Vitamin B12 and Folate Today R73.02 - Impaired glucose tolerance (oral) Vitamin D 25-OH Total Today R73.02 - Impaired glucose tolerance (oral) XR DEXA axial skeleton Today M81.0 - Age-related osteoporosis without current pathological fracture, M85.80 - Other specified disorders of bone density and structure, unspecified site Lipid Panel Today E78.00 - Pure hypercholesterolemia, unspecified, R73.02 - Impaired glucose tolerance (oral) Thyroid Stimulating Hormone Today R73.02 - Impaired glucose tolerance (oral) UA CC w/rflx Micro + Cult Today R30.0 - Dysuria, R73.02 - Impaired glucose tolerance (oral) Referrals Podiatry Referral B35.1 - Tinea unguium Medications: Refilled hydroxyzine HCl 25 mg PO BID 60 tabs 2RF M85.80 - Other specified disorders of bone density and structure, unspecified site
--- OUTSIDE RECORDS SUMMARY | 2024-10-05 13:13 | XMS_ITS | Clinical Summary ---
Author Organization [facility] Address [address] [place] [address] Care Team Providers Care Product Support Consultant Name Role Phone Jose Diaz MD Primary Care Provider [phone] Social History Tobacco Use Types Packs/Day Years Used Date Smoking Tobacco: Never Assessed Sex and Gender Information Value Date Recorded Sex Assigned at Not on file Gender Identity Not on file Sexual Orientation Not on file Job Start Date Occupation Industry Not on file Not on file Not on file Plan of Treatment Health Maintenance Due Date Last Done Comments Hepatitis C Screening 1955 COVID-19 Vaccine (#1) 1957 Depression Screening 1969 Preventative Health Evaluation 1975 DTap / Tdap / Td (1 - Tdap) 1976 Colon Cancer Screening (Colonoscopy) 2002 Breast Cancer Screening (Mammogram) 2007 Shingrix-Zoster Vaccine (1 of 2) 2007 Fall Risk Assessment 2022 Osteoporosis Screening (DEXA Scan) 2022 Pneumococcal Vaccine (1 of 1 - PCV) 2022 Influenza Vaccine (#1) 2024 RSV Adult > 60+ Yrs or Pregn ant (1 - 1-dose 75+ series) 2032 Hepatitis B Vaccines Aged Out No long er eligible based on patient's age to complete this topic RSV Ped < 20 months Aged Out No longe r eligible based on patient's age to complete this topic Care Teams Product Support Consultant Relationship Specialty Start Date End Date Po, Jose Deluna MD [address] [place] [address] [address] [facility] [place] [address] PCP - General Internal Medicine 09/15/20
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
== END 2024-10-05 12:14 | disposition home or self-care (01) ==
PROVIDERS: PCP Internal Medicine; Visit Provider Internal Medicine
DX: Z00.00 Encounter for general adult medical examination without abnormal findings (principal); E78.00 Pure hypercholesterolemia, unspecified; R73.02 Impaired glucose tolerance (oral); M85.80 Other specified disorders of bone density and structure, unspecified site; Z12.31 Encounter for screening mammogram for malignant neoplasm of breast; F41.1 Generalized anxiety disorder; Z53.20 Procedure and treatment not carried out because of patient's decision for unspecified reasons

== ENCOUNTER → 2024-10-05 11:05 | Outpatient (BNVA) | payer MEDICARE, MEDICAID, SELFPAY | PROVIDERS: PCP Internal Medicine; Visit Provider Internal Medicine | DX: Z00.00 Encounter for general adult medical examination without abnormal findings (principal); E78.00 Pure hypercholesterolemia, unspecified; R73.02 Impaired glucose tolerance (oral); M85.80 Other specified disorders of bone density and structure, unspecified site; F41.1 Generalized anxiety disorder | CPT/HCPCS: 99397 ==

== ENCOUNTER 2025-06-13 11:15 | Outpatient (AMB) | payer MEDICARE, MEDICAID, SELFPAY ==
[2025-06-13 11:17] VITALS: BP 136/74; PULSE 75; TEMP 36.2; O2SAT 98
--- NOTE | 2025-06-13 11:17 | A.OFFPC_ITS ---
Vital Signs 06/13/25 11:17 Height 5 ft 5 in BMI Reason not done Patient refused/unable BP 136/74 Blood Pressure Location Lt brachial Position Sitting Pulse 75 Pulse Source Pulse Oximeter Temp 97.1 F Temp Source Temporal Artery Scan Pulse Oximetry (%) 98 Oxygen Delivery Method Room Air Intake Visit Reasons: cholesterol Allergies trazodone Adverse Reaction (Intermediate, Verified 06/13/25 11:20) Nightmare Medication List - Last Reconciled 06/13/25 by Jose Diaz MD acetaminophen 650 mg (2 x 325 mg) PO Q4-6H PRN 30 days albuterol sulfate 90 mcg/actuation (Ventolin HFA) 2 puffs inhalation Q6H PRN alprazolam 0.25 mg PO BEDTIME PRN cane As directed fexofenadine (Corrine Allergy) 180 mg PO DAILY 90 days fluticasone propionate 50 mcg/actuation 2 sprays intranasal DAILY hydrocortisone 1% (Anti-Itch (hydrocortisone)) 1 appl topical TID PRN hydroxyzine HCl 25 mg PO BID ibuprofen 600 mg PO TID PRN 7 days sennosides-docusate sodium 8.6-50 mg (Senna-S) 2 tab-caps (2 x 8.6-50 mg) PO BEDTIME 30 days sertraline 200 mg PO DAILY triamcinolone acetonide 0.5% 1 appl topical BID Tobacco use date assessed: 06/13/25 Fall risk assessment: No Falls in past year Last assessed Fall Risk: 06/13/25 Dental Screening Dental Screen Date: 06/13/25 Did you have a dental visit in the last 12 months?: No Did you have a dental problem in the last 6 months where you did not have access to dental care?: No Was dental information given to patient?: Patient has dentist [facility] Medical History Legal blindness of left eye, as defined in [place] Bilateral knee pain Constipation Bloating Fracture of greater tuberosity of humerus Breast asymmetry Colonoscopy refused DDD (degenerative disc disease), lumbar Impaired glucose tolerance Surgical History History of back surgery Family History Father No problems noted. Mother Melanoma Brother Bladder cancer Sister Major depression FHx: mental illness Daughter Major depression Social History Housing: House Alcohol intake: current Comment: once a 2 week 3 beers Patient Tobacco Use Status: Former Tobacco user Tobacco use type: Cigarette Years Smoked: quit 2014 e-Cigarette/Vaping Use: Never Used Second Hand Smoke Exposure: No Current occupational status: disabled Current occupation: left hand dominant Cognitive needs: No Hearing needs: No Vision needs: Yes Questionnaire PHQ-9 Over the last 2 weeks, how often have you been bothered by any of the following problems? 1. Little interest or pleasure in doing things: not at all 2. Feeling down, depressed, or hopeless: not at all 3. Trouble falling or staying asleep, or sleeping too much: not at all 4. Feeling tired or having little energy: not at all 5. Poor appetite or overeating: not at all 6. Feeling bad about yourself - or that you are a failure or have let yourself or your family down: not at all 7. Trouble concentrating on things, such as reading the newspaper or watching television: not at all 8. Moving or speaking so slowly that other people could have noticed. Or the opposite - being so fidgety or restless that you have been moving around a lot more than usual: not at all 9. Thoughts that you would be better off or of hurting yourself in some way: not at all Total score: 0 Source: Developed by Drs. Byron Zavala, Faith Roberto, Sylvain Maya and colleagues, with an educational olga lidia from [employer]. Thrive Questionnaire Date Thrive assessed: 10/05/24 I am a: Patient What is your living situation today?: I have a steady place to live Within the past 12 months, did the food you bought not last and you didn't have the money to get more?: Never true Within the past 12 months, did you worry whether your food would run out before you got money to buy more?: Never true Do you have trouble paying for medicines?: No Do you have trouble getting transportation to medical appointments?: No Do you have trouble paying your heating and electricity bill?: No Do you have trouble taking care of your child, family member or friend?: No Do you have trouble with day-to-day activities such as bathing, preparing meals, shopping, managing finances, etc.?: No Are you currently unemployed and looking for a job?: No Are you interested in more education?: No Please select the resources that you would like help with: None Currently or been in a relationship where the following occur: I choose not to answer THRIVE Score: 0 AUDIT C Alcohol Use Questionnaire (AUDIT-C) 1. How often do you have a drink containing alcohol?: 2-4 times a month 2. How many drinks containing alcohol do you have on a typical day when you are drinking?: 1 or 2 3. How often do you have six or more drinks on one occasion?: Never Total Score: 2 DENA-7 AMB Questionnaire DENA-7 Date DENA - 7 assessed: 06/13/25 Feeling nervous, anxious, or on edge: 0 = Not at all Not being able to stop or control worryin = Not at all Worrying too much about different things: 0 = Not at all Trouble relaxin = Not at all Being so restless that it is hard to sit still: 0 = Not at all Becoming easily annoyed or irritable: 0 = Not at all Feeling afraid as if something awful might happen: 0 = Not at all Total DENA-7 score (0-4 normal; 5-9 mild; 10-14 moderate; 15-21 severe): 0 Source: Developed by Drs. Byron Zavala, Faith Roberto, Sylvain Maya and colleagues, with an educational olga lidia from [employer]. Physical exam (Primary Care) Vital Signs: Last Vital Signs Temp 97.1 F 06/13/25 11:17 Pulse 75 06/13/25 11:17 BP 136/74 06/13/25 11:17 Pulse Ox 98 06/13/25 11:17 Oxygen Delivery Method Room Air 06/13/25 11:17 Tobacco/Smoking Status: Tobacco use Status Tobacco use date assessed 06/13/25 06/13/25 11:22 Patient Tobacco Use Status Former Tobacco user 06/13/25 11:22 Tobacco use type Cigarette 06/13/25 11:22 e-Cigarette/Vaping Use Never Used 06/13/25 11:22 PHQ-9: PHQ-9 Score PHQ-9: Total score 0 06/13/25 11:22 Thrive Assessment: Date of Thrive Assessment Date Thrive assessed 10/05/24 06/13/25 11:22 Currently or been in a relationship where the following occur: I choose not to answer Const General: alert; No acute distress Eyes Conjunctivae: conjunctivae normal Resp Auscultation: clear to auscultation bilaterally Cardio Rate: regular rate Rhythm: regular rhythm GI Inspection: Yes normal to inspection Extrem General: Yes normal to inspection and No edema Coding Level of Care Code Est Pt Level 4 (08917) Diagnoses Hypercholesterolemia E78.00 Impaired glucose tolerance R73.02 Osteopenia M85.80 Breast cancer screening by mammogram Z12. Generalized anxiety disorder F41.1 Assessment & Plan Assessment & Plan (1) Hypercholesterolemia: Code(s): E78.00 - Pure hypercholesterolemia, unspecified Category: Medical Plan: Patient is recommended to have blood work done. (2) Impaired glucose tolerance: Code(s): R73.02 - Impaired glucose tolerance (oral) Category: Medical Plan: Decrease the amount of carbohydrate intake, pasta, bread, rice and potatoes are all sugar and that is aside from all the sweet stuff, remember that fruits are good but they are Sweet also. (3) Osteopenia: Code(s): M85.80 - Other specified disorders of bone density and structure, unspecified site Category: Medical Plan: Patient is reminded about bone density (4) Breast cancer screening by mammogram: Code(s): Z12.31 - Encounter for screening mammogram for malignant neoplasm of breast Category: Medical Plan: Patient is reminded about mammogram. (5) Generalized anxiety disorder: Comment: CHD,2x a week Kelechi Reynaga ended August 2022 Code(s): F41.1 - Generalized anxiety disorder Category: Medical Plan History of Present Illness The patient is a 69-year-old female presenting for a follow-up visit. The patient has a history of generalized anxiety disorder, managed with hydroxyzine for sleep and sertraline 200 mg daily. She has hypercholesterolemia and impaired glucose tolerance, with the last blood work in September showing normal counts. Knee pain is reported, especially when carrying groceries and climbing stairs, linked to past occupational strain. Previous x-rays were normal, and treatment includes Voltaren gel and glucosamine. Preventative care includes a due mammogram and a reminder for bone density assessment. 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 Review of Systems - Musculoskeletal: Reports knee pain when carrying groceries and climbing stairs. Denies swelling in the legs. - Psychiatric: Reports use of hydroxyzine for anxiety and sleep. Denies need for additional counseling at this time. Physical Exam - Musculoskeletal: No swelling in the legs observed. Results - Labs: Last blood work in September showed normal blood counts. Plan Patient was informed and verbally consented to the use of an ambient scribe for clinic note documentation during this visit. 1. Generalized Anxiety Disorder The patient continues to manage her generalized anxiety disorder with hydroxyzine for sleep and sertraline 200 mg daily. She declined additional couns eling at this time. 2. Hypercholesterolemia The patient is advised to continue monitoring her cholesterol levels, with blood work recommended to assess current status. 3. Impaired Glucose Tolerance The patient is reminded to have regular blood work to monitor glucose levels. 4. Knee Pain The patient reports knee pain, particularly when carrying groceries and ascending stairs. She is advised to use Voltaren gel and consider glucosamine supplements for symptom relief. 5. Preventative Care The patient is reminded to schedule a mammogram and bone density assessment. Flu vaccination is planned for next week, and shingles vaccination has been completed. Discussion Notes During the visit, we discussed the management of the patient's generalized anxiety disorder, including the continuation of hydroxyzine and sertraline. We also reviewed the importance of regular blood work to monitor her hypercholesterolemia and impaired glucose tolerance. The patient was advised on the use of Voltaren gel and glucosamine for knee pain relief. Preventative care measures, including scheduling a mammogram and bone density assessment, were emphasized. We also discussed the timing of her flu vaccination and confirmed the completion of her shingles vaccination. Patient Instructions - Continue taking hydroxyzine and sertraline as prescribed. - Schedule and complete blood work to monitor cholesterol and glucose levels. - Use Voltaren gel and consider glucosamine for knee pain relief. - Schedule a mammogram and bone density assessment. - Plan to receive the flu vaccination next week. Orders: Orders MM tomosynthesis screening BI Today Z12.31 - Encounter for screening mammogram for malignant neoplasm of breast Medications: Refilled hydroxyzine HCl 25 mg PO BID 60 tabs 2RF F41.1 - Generalized anxiety disorder
--- OUTSIDE RECORDS SUMMARY | 2025-06-13 13:10 | XMS_ITS | Clinical Summary ---
Author Organization [facility] Address [address] [place] [address] Care Team Providers Care Contract Mail Carrier Name Role Phone Jose Diaz MD Primary Care Provider [phone] Social History Tobacco Use Types Packs/Day Years [...] 1 - PCV) 2022 Influenza Vaccine (#1) 2025 RSV Adult > 60+ Yrs or Pregn ant (1 - 1-dose 75+ series) 2032 Hepatitis B Vaccines Aged Out No long er eligible based on patient's age to complete this topic RSV Ped < 20 months Aged Out No longe r eligible based on patient's age to complete this topic Care Teams Contract Mail Carrier Relationship Specialty Start Date End Date Po, Jose Deluna MD [address] [place] [address] [address] [facility] [place] [address] PCP - General Internal Medicine 09/15/20
--- OUTSIDE RECORDS SUMMARY | 2025-06-13 13:10 | XMS_ITS | Clinical Summary ---
Author Organization Patient Business Ser [facility] Address [address] [place] [address] Care Team Providers Care General Ophthalmologist Name Role Phone Jose Diaz MD Primary Care Provider [phone] Surgical History Surgery Date Site/Laterality Comments SECTION PROCEDURE: HISTORICAL DELIVERY OTHER SURGICAL HISTORY 06/12/2002 PROCEDURE: HYSTEROSCOPY, SURGICAL/ABLATION OTHER SURGICAL HISTORY N/A PROCEDURE: [place] FACETECTOMY & FORAMOTOMY 1 VRT SGM [...] drink = 0.6 oz pur e alcohol) Comments Unknown Sex and Gender Information Value Date Recorded Sex Assigned at Female 09/07/2021 1:01 PM EST Legal Sex Female 12:49 PM EST Gender Identity Female 09/07/2021 1:01 [...] (2 - Td or Tdap) 10/08/2012 10/08/2002 Pneumococcal Vaccine: 50+ Years (2 of 2 - PCV) 06/13/2020 06/13/2019 Colorectal Cancer Screening: Colonoscopy 09/07/2021 Hepatitis C Screening 09/07/2021 Medicare Annual Wellness Visit 09/07/2021 Osteoporosis Screening (Bone Density Screening) 09/07/2021 Social Influencers of Health Screening 09/07/2021 Falls Risk Assessment 2022 Depression Screening 09/12/2024 COVID-19 Vaccine ( season) 2025 12/11/2020, 11/20/2020 Influenza Vaccine (#1) 2025 , 07/17/2018, 07/25/2017, Additional history exists RSV Immunization Adult Patients (1 - 1-dose 75+ series) 2032 HIB [...] patient's age to complete this topic Meningococcal B Vaccine Aged Out No l onger eligible based on patient's age to complete this topic RSV Immunization Patients Under 20 months Aged Out No longer eligible based on patient's age to complete this topic Varicella Vaccines Aged Out No longer eligible based on patient's age to complete this topic Insurance MEDICARE MEDICAID - [place] Care Teams General Ophthalmologist Relationship Specialty Start Date End Date Jose Diaz MD [address] [place] [address] [address] [facility] [place] [address] PCP - General Internal Medicine 08/21/21
== END 2025-06-13 12:18 | disposition home or self-care (01) ==
LOC: HO.HMCH 11:16
PROVIDERS: PCP Internal Medicine; Visit Provider Internal Medicine
DX: E78.00 Pure hypercholesterolemia, unspecified (principal); R73.02 Impaired glucose tolerance (oral); M85.80 Other specified disorders of bone density and structure, unspecified site; Z12.31 Encounter for screening mammogram for malignant neoplasm of breast; F41.1 Generalized anxiety disorder

== ENCOUNTER → 2025-06-13 11:15 | Outpatient (BNVA) | payer MEDICARE, MEDICAID, SELFPAY | PROVIDERS: PCP Internal Medicine; Visit Provider Internal Medicine | DX: F41.1 Generalized anxiety disorder (principal); R73.02 Impaired glucose tolerance (oral); M85.80 Other specified disorders of bone density and structure, unspecified site; E78.00 Pure hypercholesterolemia, unspecified; M25.561 Pain in right knee; M25.562 Pain in left knee | CPT/HCPCS: 96127; 99212 ==